=== PATIENT | male | born 1940 | race Caucasian/White ===

== ENCOUNTER 2018-02-27 11:07 | Inpatient (IN) ==
[2018-02-27] MEDS ORDERED: SODIUM CHLORIDE 0.9% 500 ML IV STA ×2 (11:29→12:43)
[2018-02-27] MEDS ORDERED: DILTIAZEM INJ 100 MG in SODIUM CHLORIDE 0.9% 100 ML IV SCH (11:30)
[2018-02-27] MEDS ORDERED: DILTIAZEM 50 MG/10 ML VIAL IV STA (11:30)
[2018-02-27 11:55] LABS: Basophils % 0.3 % (0.0-0.8); Eosinophils % 0.1 % (0.00-10.9); Hematocrit 40.7 VOL% (42.0-52.0); Hemoglobin 13.6 GM/DL (14.0-18.0); Immature Granulocytes % 0.4 %; Immature Granulocytes Absolute 0.05 #; Lymphocytes # 2.1 10*3/uL (1.4-4.0); Lymphocytes % 18.8 % (21.2-54.2); Mean Corpuscular HGB Conc 33.4 GM/DL (32-36); Mean Corpuscular Hemoglobin 29 PG (27-34); Mean Corpuscular Volume 85.3 FL (87-102); Mean Platelet Volume 11.4 FL (9.6-12.0); Monocytes # 1.3 10*3/uL (0.11-0.8); Monocytes % 11.6 % (1.7-12.7); Neutrophils # 7.7 10*3/uL (1.4-7.4); Neutrophils % 68.8 % (38.7-73.9); Platelet Count 191 T/CUMM (130-400); Red Blood Count 4.77 MC/CUMM (3.8-5.5); Red Cell Distribution Width 15.9 % (9.3-17.3); White Blood Count 11.3 T/CUMM (4-12)
[2018-02-27 12:12] LABS: Partial Thromboplastin Time 34.9 SECS (0-40)
[2018-02-27 12:17] LABS: INR 2.4
[2018-02-27 12:19] LABS: Albumin 3.4 G/DL (3.4-5.0); Bilirubin,Total 0.8 MG/DL (0.2-1.0); Calcium 9.2 MG/DL (8.5-10.1); Osmolality,Calculated 280.7 MOS/KG (273-304); Potassium 4.3 MMOL/L (3.5-5.1); Thyroid Stimulating Hormone 1.28 uIU/ml (0.358-3.74); Total Protein 7.8 G/DL (6.4-8.3)
[2018-02-27 12:34] LABS: PT Patient Result 24.8 SECS
[2018-02-27] MEDS ORDERED: ACETAMINOPHEN 325 MG TABLET PO PRN (14:31)
[2018-02-27] MEDS ORDERED: ONDANSETRON 4 MG/2 ML VIAL IV PRN (14:31)
[2018-02-27] MEDS: SODIUM CHLORIDE 0.9% 1,000 ML IV SCH ×2 (15:18→18:48)
[2018-02-27] MEDS ORDERED: GLUCAGON 1 MG VIAL IM PRN (15:20)
[2018-02-27] MEDS ORDERED: DEXTROSE 50% 25 GM/50 ML VIAL IV PRN (15:20)
[2018-02-27 15:40] LABS: Apearance,Urine CLEAR (Clear); Bilirubin,Urine Negative (Negative); Blood, Urine Small mg/dL (Negative); Glucose,Urine (UA) >=500 mg/dL (Negative); Ketones,Urine Negative (Negative); Nitrite,Urine Negative (Negative); Protein,Urine Negative; RBC,Urine 1 /HPF (0-4); Squamous Epithelial Cell,Urine Occasional /HPF (0-10); Urine Color Yellow (Yellow); Urine Urobilinogen < 2.0 EU/DL (0.2-1.0); WBC,Urine 2 /HPF (0-6)
[2018-02-27] MEDS: INSULIN LISPRO 100 UNIT/ML SUBCUT SCH ×2 (16:27→20:50)
[2018-02-27] MEDS: metFORMIN 500 MG TABLET PO SCH (16:54)
[2018-02-27] MEDS ORDERED: AMIODARONE INJ 150 MG in DEXTROSE 5% 100 ML IV ONE (17:33)
[2018-02-27] MEDS ORDERED: AMIODARONE INJ 450 MG in DEXTROSE 5% 241 ML IV SCH (18:00)
[2018-02-27] MEDS: WARFARIN 5 MG TABLET PO SCH (18:47)
[2018-02-27] MEDS: levETIRAcetam 500 MG TABLET PO SCH (20:51)
[2018-02-27] MEDS: MAGNESIUM CHLORIDE 64 MG TABLET PO SCH (20:51)
[2018-02-27] MEDS: DOCUSATE SODIUM 100 MG CAPSULE PO SCH (20:52)
[2018-02-27] MEDS: ROSUVASTATIN 20 MG TABLET PO SCH (20:52)
[2018-02-27] MEDS: METOPROLOL TARTRATE 50 MG TABLET PO SCH (20:52)
[2018-02-27] MEDS ORDERED: AMITRIPTYLINE 25 MG TABLET PO SCH (21:00)
[2018-02-28] MEDS: AMIODARONE INJ 450 MG in DEXTROSE 5% 241 ML IV SCH ×2 (01:02→17:28)
[2018-02-28] MEDS: SODIUM CHLORIDE 0.9% 1,000 ML IV SCH ×3 (04:31→12:55)
[2018-02-28 06:01] LABS: Basophils % 0.2 % (0.0-0.8); Eosinophils % 0.1 % (0.00-10.9); Hematocrit 39.3 VOL% (42.0-52.0); Immature Granulocytes % 0.3 %; Immature Granulocytes Absolute 0.03 #; Lymphocytes # 2.2 10*3/uL (1.4-4.0); Lymphocytes % 20.8 % (21.2-54.2); Mean Corpuscular HGB Conc 33.1 GM/DL (32-36); Mean Corpuscular Hemoglobin 28 PG (27-34); Mean Corpuscular Volume 85.4 FL (87-102); Mean Platelet Volume 11.3 FL (9.6-12.0); Monocytes # 0.9 10*3/uL (0.11-0.8); Monocytes % 8.6 % (1.7-12.7); Neutrophils # 7.5 10*3/uL (1.4-7.4); Platelet Count 186 T/CUMM (130-400); Red Cell Distribution Width 15.9 % (9.3-17.3); White Blood Count 10.6 T/CUMM (4-12)
[2018-02-28] MEDS: LEVOTHYROXINE 50 MCG TABLET PO SCH (06:18)
[2018-02-28 06:44] LABS: Osmolality,Calculated 282.4 MOS/KG (273-304); Potassium 4.4 MMOL/L (3.5-5.1)
[2018-02-28] MEDS: levETIRAcetam 500 MG TABLET PO SCH (08:55)
[2018-02-28] MEDS: PANTOPRAZOLE 40 MG TABLET PO SCH (08:56)
[2018-02-28] MEDS: metFORMIN 500 MG TABLET PO SCH ×2 (08:56→17:28)
[2018-02-28] MEDS: TAMSULOSIN 0.4 MG CAPSULE PO SCH (08:56)
[2018-02-28] MEDS: DOCUSATE SODIUM 100 MG CAPSULE PO SCH ×2 (08:56→22:09)
[2018-02-28] MEDS: METOPROLOL TARTRATE 50 MG TABLET PO SCH ×2 (08:56→22:09)
[2018-02-28] MEDS: LORATADINE 10 MG TABLET PO SCH (08:56)
[2018-02-28] MEDS: MAGNESIUM CHLORIDE 64 MG TABLET PO SCH ×2 (08:56→22:09)
[2018-02-28] MEDS: INSULIN LISPRO 100 UNIT/ML SUBCUT SCH ×4 (08:57→22:10)
[2018-02-28] MEDS ORDERED: Dapagliflozin Propanediol [Farxiga] PO SCH (09:00)
[2018-02-28] MEDS ORDERED: Insulin Degludec [Tresiba Flextouch U-100] SUBCUT SCH (09:00)
[2018-02-28] MEDS ORDERED: DIGOXIN 0.5 MG/2 ML AMP IV ONE ×2 (12:00→18:00)
[2018-02-28] MEDS ORDERED: AMITRIPTYLINE 25 MG TABLET PO SCH (15:29)
[2018-02-28] MEDS: WARFARIN 5 MG TABLET PO SCH (17:28)
[2018-02-28] MEDS: LISINOPRIL 2.5 MG TABLET PO SCH (22:09)
[2018-02-28] MEDS: ROSUVASTATIN 20 MG TABLET PO SCH (22:09)
[2018-02-28] MEDS: levETIRAcetam 250 MG TABLET PO SCH (22:09)
[2018-02-28] MEDS: guaiFENesin 200 MG/10 ML UDCUP PO PRN (22:10)
[2018-03-01 05:47] LABS: Basophils % 0.2 % (0.0-0.8); Eosinophils # 0.1 10*3/uL (0.0-0.87); Eosinophils % 0.7 % (0.00-10.9); Hematocrit 36.6 VOL% (42.0-52.0); Hemoglobin 12.1 GM/DL (14.0-18.0); Immature Granulocytes % 0.2 %; Immature Granulocytes Absolute 0.02 #; Lymphocytes # 1.6 10*3/uL (1.4-4.0); Lymphocytes % 19.6 % (21.2-54.2); Mean Corpuscular HGB Conc 33.1 GM/DL (32-36); Mean Corpuscular Hemoglobin 29 PG (27-34); Mean Corpuscular Volume 86.1 FL (87-102); Mean Platelet Volume 12.7 FL (9.6-12.0); Monocytes # 0.7 10*3/uL (0.11-0.8); Monocytes % 8.8 % (1.7-12.7); NRBC # 0.02 10*3/uL; Neutrophils # 5.8 10*3/uL (1.4-7.4); Neutrophils % 70.5 % (38.7-73.9); Platelet Count 102 T/CUMM (130-400); Red Blood Count 4.25 MC/CUMM (3.8-5.5); Red Cell Distribution Width 16.2 % (9.3-17.3); White Blood Count 8.2 T/CUMM (4-12)
[2018-03-01 06:07] LABS: PT Patient Result 30.8 SECS
[2018-03-01] MEDS: LEVOTHYROXINE 50 MCG TABLET PO SCH (06:18)
[2018-03-01 06:24] LABS: Calcium 8.4 MG/DL (8.5-10.1); Osmolality,Calculated 282.3 MOS/KG (273-304)
[2018-03-01 06:25] LABS: Osmolality,Calculated 283.3 MOS/KG (273-304)
[2018-03-01] MEDS ORDERED: COLCHICINE 0.6 MG TABLET PO ONE ×2 (08:31→14:00)
[2018-03-01] MEDS: INSULIN LISPRO 100 UNIT/ML SUBCUT SCH ×4 (08:45→21:20)
[2018-03-01] MEDS: LISINOPRIL 2.5 MG TABLET PO SCH ×2 (08:52→21:19)
[2018-03-01] MEDS: AMOXICILLIN/CLAV 875 MG TABLET PO SCH ×2 (08:53→21:19)
[2018-03-01] MEDS: MAGNESIUM CHLORIDE 64 MG TABLET PO SCH ×2 (08:53→21:19)
[2018-03-01] MEDS: PANTOPRAZOLE 40 MG TABLET PO SCH (08:53)
[2018-03-01] MEDS: TAMSULOSIN 0.4 MG CAPSULE PO SCH (08:53)
[2018-03-01] MEDS: levETIRAcetam 250 MG TABLET PO SCH ×2 (08:53→21:20)
[2018-03-01] MEDS: DOCUSATE SODIUM 100 MG CAPSULE PO SCH ×2 (08:53→21:20)
[2018-03-01] MEDS: METOPROLOL TARTRATE 50 MG TABLET PO SCH ×2 (08:53→21:20)
[2018-03-01] MEDS: AMIODARONE 200 MG TABLET PO SCH ×2 (08:54→21:19)
[2018-03-01] MEDS: metFORMIN 500 MG TABLET PO SCH ×2 (08:54→17:32)
[2018-03-01] MEDS: LORATADINE 10 MG TABLET PO SCH (08:54)
[2018-03-01] MEDS: AMIODARONE INJ 450 MG in DEXTROSE 5% 241 ML IV SCH (10:54)
[2018-03-01] MEDS ORDERED: WARFARIN 5 MG TABLET PO SCH (18:00)
[2018-03-01] MEDS: ROSUVASTATIN 20 MG TABLET PO SCH (21:19)
[2018-03-02 03:31] LABS: Basophils # 0.1 10*3/uL (0.0-0.2); Basophils % 0.7 % (0.0-0.8); Eosinophils # 0.2 10*3/uL (0.0-0.87); Eosinophils % 2.6 % (0.00-10.9); Hemoglobin 12.6 GM/DL (14.0-18.0); Immature Granulocytes % 0.3 %; Immature Granulocytes Absolute 0.02 #; Lymphocytes # 1.6 10*3/uL (1.4-4.0); Lymphocytes % 20.6 % (21.2-54.2); Mean Corpuscular HGB Conc 32.3 GM/DL (32-36); Mean Corpuscular Hemoglobin 28 PG (27-34); Mean Corpuscular Volume 86.5 FL (87-102); Monocytes # 0.8 10*3/uL (0.11-0.8); Neutrophils # 5.1 10*3/uL (1.4-7.4); Neutrophils % 65.8 % (38.7-73.9); Platelet Count 199 T/CUMM (130-400); Red Blood Count 4.51 MC/CUMM (3.8-5.5); Red Cell Distribution Width 15.9 % (9.3-17.3); White Blood Count 7.7 T/CUMM (4-12)
[2018-03-02 03:44] LABS: INR 3.3
[2018-03-02 03:47] LABS: PT Patient Result 33.7 SECS
[2018-03-02 03:58] LABS: Calcium 8.4 MG/DL (8.5-10.1); Osmolality,Calculated 280.5 MOS/KG (273-304); Potassium 3.9 MMOL/L (3.5-5.1)
[2018-03-02] MEDS: LEVOTHYROXINE 50 MCG TABLET PO SCH (06:18)
[2018-03-02] MEDS: INSULIN LISPRO 100 UNIT/ML SUBCUT SCH ×4 (08:39→20:47)
[2018-03-02] MEDS: LISINOPRIL 2.5 MG TABLET PO SCH ×2 (08:41→20:47)
[2018-03-02] MEDS: AMOXICILLIN/CLAV 875 MG TABLET PO SCH ×2 (08:41→20:47)
[2018-03-02] MEDS: MAGNESIUM CHLORIDE 64 MG TABLET PO SCH ×2 (08:42→20:47)
[2018-03-02] MEDS: metFORMIN 500 MG TABLET PO SCH ×2 (08:42→17:24)
[2018-03-02] MEDS: DOCUSATE SODIUM 100 MG CAPSULE PO SCH ×2 (08:42→20:47)
[2018-03-02] MEDS: levETIRAcetam 250 MG TABLET PO SCH ×2 (08:42→20:47)
[2018-03-02] MEDS: LORATADINE 10 MG TABLET PO SCH (08:43)
[2018-03-02] MEDS: METOPROLOL TARTRATE 50 MG TABLET PO SCH ×2 (08:43→20:47)
[2018-03-02] MEDS: PANTOPRAZOLE 40 MG TABLET PO SCH (08:43)
[2018-03-02] MEDS: AMIODARONE 200 MG TABLET PO SCH ×2 (08:44→20:47)
[2018-03-02] MEDS: TAMSULOSIN 0.4 MG CAPSULE PO SCH (08:44)
[2018-03-02] MEDS: ROSUVASTATIN 20 MG TABLET PO SCH (20:47)
[2018-03-03 05:04] LABS: Basophils % 0.6 % (0.0-0.8); Eosinophils # 0.3 10*3/uL (0.0-0.87); Eosinophils % 4.6 % (0.00-10.9); Hematocrit 39.6 VOL% (42.0-52.0); Hemoglobin 12.8 GM/DL (14.0-18.0); Immature Granulocytes % 0.4 %; Immature Granulocytes Absolute 0.03 #; Lymphocytes # 1.7 10*3/uL (1.4-4.0); Lymphocytes % 23.9 % (21.2-54.2); Mean Corpuscular HGB Conc 32.3 GM/DL (32-36); Mean Corpuscular Hemoglobin 28 PG (27-34); Mean Platelet Volume 11.3 FL (9.6-12.0); Monocytes # 0.6 10*3/uL (0.11-0.8); Monocytes % 8.6 % (1.7-12.7); Neutrophils # 4.3 10*3/uL (1.4-7.4); Neutrophils % 61.9 % (38.7-73.9); Platelet Count 213 T/CUMM (130-400); Red Blood Count 4.55 MC/CUMM (3.8-5.5); Red Cell Distribution Width 15.8 % (9.3-17.3)
[2018-03-03 05:35] LABS: Calcium 8.3 MG/DL (8.5-10.1); Osmolality,Calculated 283.3 MOS/KG (273-304)
[2018-03-03 06:02] LABS: INR 3.6
[2018-03-03 06:03] LABS: PT Patient Result 36.1 SECS
[2018-03-03] MEDS: LEVOTHYROXINE 50 MCG TABLET PO SCH (06:21)
[2018-03-03] MEDS: MAGNESIUM CHLORIDE 64 MG TABLET PO SCH ×2 (09:01→21:25)
[2018-03-03] MEDS: AMIODARONE 200 MG TABLET PO SCH ×2 (09:01→21:25)
[2018-03-03] MEDS: PANTOPRAZOLE 40 MG TABLET PO SCH (09:01)
[2018-03-03] MEDS: LISINOPRIL 2.5 MG TABLET PO SCH ×2 (09:02→21:25)
[2018-03-03] MEDS: DOCUSATE SODIUM 100 MG CAPSULE PO SCH ×2 (09:02→21:25)
[2018-03-03] MEDS: AMOXICILLIN/CLAV 875 MG TABLET PO SCH ×2 (09:02→21:25)
[2018-03-03] MEDS: TAMSULOSIN 0.4 MG CAPSULE PO SCH (09:02)
[2018-03-03] MEDS: levETIRAcetam 500 MG TABLET PO SCH (09:03)
[2018-03-03] MEDS: metFORMIN 500 MG TABLET PO SCH ×2 (09:03→17:25)
[2018-03-03] MEDS: METOPROLOL TARTRATE 50 MG TABLET PO SCH ×2 (09:03→21:25)
[2018-03-03] MEDS: LORATADINE 10 MG TABLET PO SCH (09:03)
[2018-03-03] MEDS: INSULIN LISPRO 100 UNIT/ML SUBCUT SCH ×4 (14:59→21:26)
[2018-03-03] MEDS: levETIRAcetam 250 MG TABLET PO SCH (21:25)
[2018-03-03] MEDS: ROSUVASTATIN 20 MG TABLET PO SCH (21:25)
[2018-03-04 04:29] LABS: INR 3.2; PT Patient Result 32.2 SECS
[2018-03-04] MEDS: LEVOTHYROXINE 50 MCG TABLET PO SCH ×2 (06:43)
[2018-03-04] MEDS: INSULIN LISPRO 100 UNIT/ML SUBCUT SCH ×4 (08:39→20:50)
[2018-03-04] MEDS: AMOXICILLIN/CLAV 875 MG TABLET PO SCH ×2 (08:53→20:49)
[2018-03-04] MEDS: LISINOPRIL 2.5 MG TABLET PO SCH ×2 (08:53→20:49)
[2018-03-04] MEDS: PANTOPRAZOLE 40 MG TABLET PO SCH (08:53)
[2018-03-04] MEDS: levETIRAcetam 500 MG TABLET PO SCH (08:53)
[2018-03-04] MEDS: TAMSULOSIN 0.4 MG CAPSULE PO SCH (08:53)
[2018-03-04] MEDS: MAGNESIUM CHLORIDE 64 MG TABLET PO SCH ×2 (08:53→20:49)
[2018-03-04] MEDS: METOPROLOL TARTRATE 50 MG TABLET PO SCH ×2 (08:54→20:49)
[2018-03-04] MEDS: DOCUSATE SODIUM 100 MG CAPSULE PO SCH ×2 (08:54→20:49)
[2018-03-04] MEDS: AMIODARONE 200 MG TABLET PO SCH (08:54)
[2018-03-04] MEDS: metFORMIN 500 MG TABLET PO SCH ×2 (08:54→16:51)
[2018-03-04] MEDS: LORATADINE 10 MG TABLET PO SCH (08:54)
[2018-03-04] MEDS: guaiFENesin 200 MG/10 ML UDCUP PO PRN (13:53)
[2018-03-04] MEDS: levETIRAcetam 250 MG TABLET PO SCH (20:49)
[2018-03-04] MEDS: ROSUVASTATIN 20 MG TABLET PO SCH (20:49)
[2018-03-05 05:48] LABS: INR 2.3
[2018-03-05] MEDS: LEVOTHYROXINE 50 MCG TABLET PO SCH (06:24)
[2018-03-05] MEDS: metFORMIN 500 MG TABLET PO SCH (08:57)
[2018-03-05] MEDS: LORATADINE 10 MG TABLET PO SCH (08:57)
[2018-03-05] MEDS: MAGNESIUM CHLORIDE 64 MG TABLET PO SCH (08:57)
[2018-03-05] MEDS: TAMSULOSIN 0.4 MG CAPSULE PO SCH (08:57)
[2018-03-05] MEDS: AMOXICILLIN/CLAV 875 MG TABLET PO SCH (08:57)
[2018-03-05] MEDS: LISINOPRIL 2.5 MG TABLET PO SCH (08:57)
[2018-03-05] MEDS: levETIRAcetam 500 MG TABLET PO SCH (08:57)
[2018-03-05] MEDS: METOPROLOL TARTRATE 50 MG TABLET PO SCH (08:57)
[2018-03-05] MEDS: INSULIN LISPRO 100 UNIT/ML SUBCUT SCH ×2 (08:58→12:18)
[2018-03-05] MEDS: PANTOPRAZOLE 40 MG TABLET PO SCH (08:58)
[2018-03-05] MEDS: DOCUSATE SODIUM 100 MG CAPSULE PO SCH (08:58)
[2018-03-05] MEDS ORDERED: AMIODARONE 200 MG TABLET PO SCH (09:00)
[2018-03-05 12:05] VITALS: BP 106/55
== END 2018-03-05 13:05 | disposition swing bed (61) | DRG 884 ==
LOC: N.ED 11:07 → N.EDINP 12:51 → N.TELEN 17:29
PROVIDERS: ADMIT Internal Medicine; ATTEND Internal Medicine

== ENCOUNTER 2019-11-15 12:00 | Inpatient (IN) ==
[2019-11-15 12:39] LABS: Basophils # 0.1 10*3/uL (0.0-0.2); Basophils % 0.6 % (0.0-0.8); Eosinophils # 0.1 10*3/uL (0.0-0.87); Eosinophils % 0.5 % (0.00-10.9); Hematocrit 40.1 VOL% (42.0-52.0); Hemoglobin 12.8 GM/DL (14.0-18.0); Immature Granulocytes % 0.5 %; Immature Granulocytes Absolute 0.05 #; Lymphocytes # 1.4 10*3/uL (1.4-4.0); Lymphocytes % 14.6 % (21.2-54.2); Mean Corpuscular HGB Conc 31.9 GM/DL (32-36); Mean Corpuscular Volume 92.2 FL (87-102); Mean Platelet Volume 11.1 FL (9.6-12.0); Monocytes % 9.2 % (1.7-12.7); Neutrophils % 74.6 % (38.7-73.9); Platelet Count 226 T/CUMM (130-400); Red Blood Count 4.35 MC/CUMM (3.8-5.5); Red Cell Distribution Width 14.4 % (9.3-17.3); White Blood Count 9.3 T/CUMM (4-12)
[2019-11-15 12:54] LABS: INR 1.7; PT Patient Result 18.3 SECS (9.6-12.2); Partial Thromboplastin Time 32.2 SECS (20.8-36.0)
[2019-11-15 12:58] LABS: Albumin 3.2 G/DL (3.4-5.0); Bilirubin,Total 0.4 MG/DL (0.2-1.0); Calcium 8.6 MG/DL (8.5-10.1); Osmolality,Calculated 281.1 MOS/KG (273-304); Total Protein 6.8 G/DL (6.4-8.3)
[2019-11-15 14:33] LABS: Apearance,Urine CLEAR (Clear); Bilirubin,Urine Negative (Negative); Blood, Urine Moderate mg/dL (Negative); Glucose,Urine (UA) >=500 mg/dL (Negative); Ketones,Urine Negative (Negative); Mucus,Urine Occasional /LPF (Occasional); Nitrite,Urine Negative (Negative); Protein,Urine Negative; RBC,Urine 1 /HPF (0-4); Squamous Epithelial Cell,Urine Occasional /HPF (0-10); Urine Color Yellow (Yellow); Urine Urobilinogen < 2.0 EU/DL (0.2-1.0); WBC,Urine 3 /HPF (0-6)
[2019-11-15] MEDS ORDERED: ONDANSETRON 4 MG/2 ML VIAL IV PRN (15:12)
[2019-11-15] MEDS ORDERED: GLUCAGON 1 MG VIAL IM PRN (15:12)
[2019-11-15] MEDS ORDERED: DEXTROSE 50% 25 GM/50 ML VIAL IV PRN (15:12)
[2019-11-15] MEDS ORDERED: ACETAMINOPHEN 325 MG TABLET PO PRN (15:12)
[2019-11-15] MEDS: metFORMIN 500 MG TABLET PO SCH (17:15)
[2019-11-15] MEDS: methylPREDNISolone SOD SUC 40 MG/1 ML VIAL IV SCH (17:15)
[2019-11-15] MEDS: WARFARIN 5 MG TABLET PO SCH (17:15)
[2019-11-15] MEDS: SODIUM CHLORIDE 0.45% 1,000 ML IV SCH (17:29)
[2019-11-15] MEDS: INSULIN LISPRO 100 UNIT/ML SUBCUT SCH ×2 (17:29→20:52)
[2019-11-15] MEDS: levETIRAcetam 250 MG TABLET PO SCH (20:30)
[2019-11-15] MEDS: AMIODARONE 200 MG TABLET PO SCH (20:30)
[2019-11-15] MEDS: MAGNESIUM CHLORIDE 64 MG TABLET PO SCH (20:31)
[2019-11-15] MEDS: METOPROLOL TARTRATE 50 MG TABLET PO SCH (20:31)
[2019-11-15] MEDS: TAMSULOSIN 0.4 MG CAPSULE PO SCH (20:31)
[2019-11-15] MEDS: ROSUVASTATIN 20 MG TABLET PO SCH (20:31)
[2019-11-15] MEDS ORDERED: MAGNESIUM SULF RIDER 2 GM in PREMIX 1 EACH IV PRN (23:03)
[2019-11-15] MEDS ORDERED: MAGNESIUM SULF RIDER 4 GM in PREMIX 1 EACH IV PRN (23:03)
[2019-11-16] MEDS: methylPREDNISolone SOD SUC 40 MG/1 ML VIAL IV SCH ×3 (01:19→17:14)
[2019-11-16 04:32] LABS: Basophils % 0.2 % (0.0-0.8); Hematocrit 34.8 VOL% (42.0-52.0); Hemoglobin 11.2 GM/DL (14.0-18.0); Immature Granulocytes % 0.6 %; Immature Granulocytes Absolute 0.06 #; Lymphocytes # 1.2 10*3/uL (1.4-4.0); Lymphocytes % 11.6 % (21.2-54.2); Mean Corpuscular HGB Conc 32.2 GM/DL (32-36); Mean Corpuscular Volume 91.8 FL (87-102); Monocytes % 1.1 % (1.7-12.7); Neutrophils % 86.5 % (38.7-73.9); Platelet Count 225 T/CUMM (130-400); Red Blood Count 3.79 MC/CUMM (3.8-5.5); Red Cell Distribution Width 14.3 % (9.3-17.3); White Blood Count 10.1 T/CUMM (4-12)
[2019-11-16 04:46] LABS: PT Patient Result 21.8 SECS (9.6-12.2)
[2019-11-16 04:48] LABS: Calcium 8.6 MG/DL (8.5-10.1); Osmolality,Calculated 282.8 MOS/KG (273-304)
[2019-11-16] MEDS: LEVOTHYROXINE 125 MCG TABLET PO SCH (06:05)
[2019-11-16] MEDS: metFORMIN 500 MG TABLET PO SCH ×2 (09:07→17:15)
[2019-11-16] MEDS: MAGNESIUM CHLORIDE 64 MG TABLET PO SCH ×2 (09:07→21:16)
[2019-11-16] MEDS: METOPROLOL TARTRATE 50 MG TABLET PO SCH ×2 (09:08→21:16)
[2019-11-16] MEDS: LORATADINE 10 MG TABLET PO SCH (09:08)
[2019-11-16] MEDS: INSULIN GLARGINE 100 UNIT/ML SUBCUT SCH (09:08)
[2019-11-16] MEDS: PANTOPRAZOLE 40 MG TABLET PO SCH (09:08)
[2019-11-16] MEDS: AMITRIPTYLINE 25 MG TABLET PO SCH (09:08)
[2019-11-16] MEDS: INSULIN LISPRO 100 UNIT/ML SUBCUT SCH ×4 (09:09→21:15)
[2019-11-16] MEDS: levETIRAcetam 500 MG TABLET PO SCH (09:13)
[2019-11-16] MEDS: SODIUM CHLORIDE 0.45% 1,000 ML IV SCH ×2 (12:51→21:26)
[2019-11-16] MEDS: WARFARIN 5 MG TABLET PO SCH (17:15)
[2019-11-16] MEDS: AMIODARONE 200 MG TABLET PO SCH (21:16)
[2019-11-16] MEDS: ROSUVASTATIN 20 MG TABLET PO SCH (21:16)
[2019-11-16] MEDS: TAMSULOSIN 0.4 MG CAPSULE PO SCH (21:16)
[2019-11-16] MEDS: levETIRAcetam 250 MG TABLET PO SCH (21:16)
[2019-11-17] MEDS: methylPREDNISolone SOD SUC 40 MG/1 ML VIAL IV SCH ×3 (02:00→17:25)
[2019-11-17] MEDS: LEVOTHYROXINE 125 MCG TABLET PO SCH (06:16)
[2019-11-17] MEDS: INSULIN LISPRO 100 UNIT/ML SUBCUT SCH ×4 (09:08→20:29)
[2019-11-17] MEDS: SODIUM CHLORIDE 0.45% 1,000 ML IV SCH ×2 (09:08→17:36)
[2019-11-17] MEDS: levETIRAcetam 500 MG TABLET PO SCH (09:09)
[2019-11-17] MEDS: metFORMIN 500 MG TABLET PO SCH ×2 (09:09→17:26)
[2019-11-17] MEDS: METOPROLOL TARTRATE 50 MG TABLET PO SCH ×2 (09:09→20:28)
[2019-11-17] MEDS: MAGNESIUM CHLORIDE 64 MG TABLET PO SCH ×2 (09:09→20:28)
[2019-11-17] MEDS: AMITRIPTYLINE 25 MG TABLET PO SCH (09:09)
[2019-11-17] MEDS: PANTOPRAZOLE 40 MG TABLET PO SCH (09:10)
[2019-11-17] MEDS: INSULIN GLARGINE 100 UNIT/ML SUBCUT SCH (09:10)
[2019-11-17] MEDS: LORATADINE 10 MG TABLET PO SCH (09:10)
[2019-11-17 13:15] LABS: Folate 3.5 NG/ML (5.4-24.0); Vitamin B12 278 PG/ML (211-911)
[2019-11-17] MEDS: WARFARIN 5 MG TABLET PO SCH (17:26)
[2019-11-17] MEDS: TAMSULOSIN 0.4 MG CAPSULE PO SCH (20:28)
[2019-11-17] MEDS: levETIRAcetam 250 MG TABLET PO SCH (20:28)
[2019-11-17] MEDS: ROSUVASTATIN 20 MG TABLET PO SCH (20:28)
[2019-11-17] MEDS: AMIODARONE 200 MG TABLET PO SCH (20:28)
[2019-11-18] MEDS: methylPREDNISolone SOD SUC 40 MG/1 ML VIAL IV SCH ×3 (01:50→17:01)
[2019-11-18] MEDS: SODIUM CHLORIDE 0.45% 1,000 ML IV SCH ×2 (06:20→20:34)
[2019-11-18] MEDS: LEVOTHYROXINE 125 MCG TABLET PO SCH (06:20)
[2019-11-18] MEDS: LORATADINE 10 MG TABLET PO SCH (09:13)
[2019-11-18] MEDS: PANTOPRAZOLE 40 MG TABLET PO SCH (09:14)
[2019-11-18] MEDS: metFORMIN 500 MG TABLET PO SCH ×2 (09:14→16:49)
[2019-11-18] MEDS: MAGNESIUM CHLORIDE 64 MG TABLET PO SCH ×2 (09:14→20:36)
[2019-11-18] MEDS: AMITRIPTYLINE 25 MG TABLET PO SCH (09:14)
[2019-11-18] MEDS: METOPROLOL TARTRATE 50 MG TABLET PO SCH ×2 (09:14→20:37)
[2019-11-18] MEDS: INSULIN GLARGINE 100 UNIT/ML SUBCUT SCH (09:14)
[2019-11-18] MEDS: levETIRAcetam 500 MG TABLET PO SCH (09:14)
[2019-11-18] MEDS: INSULIN LISPRO 100 UNIT/ML SUBCUT SCH ×4 (09:15→20:43)
[2019-11-18] MEDS: WARFARIN 5 MG TABLET PO SCH (16:59)
[2019-11-18] MEDS: ROSUVASTATIN 20 MG TABLET PO SCH (20:36)
[2019-11-18] MEDS: levETIRAcetam 250 MG TABLET PO SCH (20:36)
[2019-11-18] MEDS: AMIODARONE 200 MG TABLET PO SCH (20:36)
[2019-11-18] MEDS: TAMSULOSIN 0.4 MG CAPSULE PO SCH (20:37)
[2019-11-19] MEDS: methylPREDNISolone SOD SUC 40 MG/1 ML VIAL IV SCH ×3 (02:30→17:11)
[2019-11-19 05:36] LABS: Basophils % 0.1 % (0.0-0.8); Hematocrit 34.7 VOL% (42.0-52.0); Hemoglobin 11.3 GM/DL (14.0-18.0); Immature Granulocytes % 1.7 %; Lymphocytes # 1.2 10*3/uL (1.4-4.0); Lymphocytes % 10.1 % (21.2-54.2); Mean Corpuscular HGB Conc 32.6 GM/DL (32-36); Mean Corpuscular Volume 91.3 FL (87-102); Mean Platelet Volume 10.6 FL (9.6-12.0); Monocytes % 2.7 % (1.7-12.7); Neutrophils % 85.4 % (38.7-73.9); Platelet Count 241 T/CUMM (130-400); Red Cell Distribution Width 14.5 % (9.3-17.3); White Blood Count 12.1 T/CUMM (4-12)
[2019-11-19 05:58] LABS: PT Patient Result 42.7 SECS (9.6-12.2)
[2019-11-19 06:02] LABS: Calcium 8.4 MG/DL (8.5-10.1); Osmolality,Calculated 282.7 MOS/KG (273-304)
[2019-11-19] MEDS: INSULIN GLARGINE 100 UNIT/ML SUBCUT SCH (08:52)
[2019-11-19] MEDS: METOPROLOL TARTRATE 50 MG TABLET PO SCH ×2 (08:53→21:45)
[2019-11-19] MEDS: PANTOPRAZOLE 40 MG TABLET PO SCH (08:53)
[2019-11-19] MEDS: MAGNESIUM CHLORIDE 64 MG TABLET PO SCH ×2 (08:53→21:45)
[2019-11-19] MEDS: levETIRAcetam 500 MG TABLET PO SCH (08:53)
[2019-11-19] MEDS: metFORMIN 500 MG TABLET PO SCH ×2 (08:53→17:11)
[2019-11-19] MEDS: LEVOTHYROXINE 125 MCG TABLET PO SCH (08:53)
[2019-11-19] MEDS: INSULIN LISPRO 100 UNIT/ML SUBCUT SCH ×4 (08:54→21:43)
[2019-11-19] MEDS: LORATADINE 10 MG TABLET PO SCH (08:54)
[2019-11-19] MEDS: SODIUM CHLORIDE 0.45% 1,000 ML IV SCH (08:54)
[2019-11-19] MEDS: AMITRIPTYLINE 25 MG TABLET PO SCH (08:54)
[2019-11-19] MEDS: levETIRAcetam 250 MG TABLET PO SCH (21:44)
[2019-11-19] MEDS: ROSUVASTATIN 20 MG TABLET PO SCH (21:45)
[2019-11-19] MEDS: TAMSULOSIN 0.4 MG CAPSULE PO SCH (21:45)
[2019-11-19] MEDS: AMIODARONE 200 MG TABLET PO SCH (21:45)
[2019-11-20] MEDS: methylPREDNISolone SOD SUC 40 MG/1 ML VIAL IV SCH (03:39)
[2019-11-20 05:05] LABS: INR 3.9
[2019-11-20 05:07] LABS: PT Patient Result 41.6 SECS (9.6-12.2)
[2019-11-20] MEDS: LEVOTHYROXINE 125 MCG TABLET PO SCH (06:27)
[2019-11-20] MEDS: INSULIN GLARGINE 100 UNIT/ML SUBCUT SCH (08:52)
[2019-11-20] MEDS: PANTOPRAZOLE 40 MG TABLET PO SCH (08:53)
[2019-11-20] MEDS: LORATADINE 10 MG TABLET PO SCH (08:53)
[2019-11-20] MEDS: AMITRIPTYLINE 25 MG TABLET PO SCH (08:53)
[2019-11-20] MEDS: metFORMIN 500 MG TABLET PO SCH (08:53)
[2019-11-20] MEDS: MAGNESIUM CHLORIDE 64 MG TABLET PO SCH (08:53)
[2019-11-20] MEDS: METOPROLOL TARTRATE 50 MG TABLET PO SCH (08:53)
[2019-11-20] MEDS: levETIRAcetam 500 MG TABLET PO SCH (08:53)
[2019-11-20] MEDS: INSULIN LISPRO 100 UNIT/ML SUBCUT SCH (08:54)
[2019-11-20 09:10] VITALS: BP 121/78
== END 2019-11-20 11:00 | DRG 57 ==
LOC: N.ED 12:00 → N.EDINP 15:12 → N.4E 16:38
PROVIDERS: ADMIT Internal Medicine; ATTEND Internal Medicine

== ENCOUNTER 2022-06-11 17:30 | Inpatient (IN) ==
[2022-06-11] MEDS ORDERED: DEXTROSE 10% 250 ML BAG IV PRN (20:14)
[2022-06-11] MEDS ORDERED: POTASSIUM CHLORIDE RIDER 10 MEQ/100 ML PREMIX IV PRN (20:14)
[2022-06-11] MEDS ORDERED: MAGNESIUM SULF RIDER 2 GM/50 ML PREMIX IV PRN (20:14)
[2022-06-11] MEDS ORDERED: ONDANSETRON 4 MG/2 ML VIAL IV PRN (20:14)
[2022-06-11] MEDS ORDERED: GLUCAGON 1 MG VIAL IM PRN (20:14)
[2022-06-11] MEDS ORDERED: MAGNESIUM SULF RIDER 4 GM/100 ML PREMIX IV PRN (20:14)
[2022-06-11] MEDS ORDERED: ACETAMINOPHEN 325 MG TABLET PO PRN (20:14)
[2022-06-11] MEDS ORDERED: FUROSEMIDE 20 MG/2 ML VIAL IV ONE (20:51)
[2022-06-11 20:53] LABS: Basophils % 0.1 % (0.0-0.8); Hematocrit 34.1 VOL% (42.0-52.0); Hemoglobin 10.8 GM/DL (14.0-18.0); Immature Granulocytes % 0.4 %; Immature Granulocytes Absolute 0.04 #; Lymphocytes # 0.6 10*3/uL (1.4-4.0); Lymphocytes % 6.5 % (21.2-54.2); Mean Corpuscular HGB Conc 31.7 GM/DL (32-36); Mean Corpuscular Volume 84.4 FL (87-102); Monocytes # 0.7 10*3/uL (0.11-0.8); Monocytes % 7.9 % (1.7-12.7); Neutrophils % 85.1 % (38.7-73.9); Platelet Count 207 T/CUMM (130-400); Red Blood Count 4.04 MC/CUMM (3.8-5.5); Red Cell Distribution Width 17.8 % (9.3-17.3)
[2022-06-11] MEDS ORDERED: levETIRAcetam 250 MG TABLET PO SCH (21:00)
[2022-06-11 21:39] LABS: Albumin 2.8 G/DL (3.4-5.0); Bilirubin,Total 0.8 MG/DL (0.20-1.00); Calcium 8.9 MG/DL (8.5-10.1); Osmolality,Calculated 291.5 MOS/KG (273-304); Potassium 4.6 MMOL/L (3.5-5.1); Total Protein 6.7 G/DL (6.4-8.2)
[2022-06-11 22:04] LABS: Free T4 (Free Thyroxine) 1.54 NG/DL (0.76-1.46); Thyroid Stimulating Hormone 9.08 uIU/ml (0.358-3.74)
[2022-06-11] MEDS: DOCUSATE SODIUM 100 MG CAPSULE PO SCH (22:44)
[2022-06-11] MEDS: INSULIN REGULAR 100 UNIT/ML SUBCUT SCH (22:45)
[2022-06-11] MEDS: ROSUVASTATIN 20 MG TABLET PO SCH (23:35)
[2022-06-11] MEDS: TAMSULOSIN 0.4 MG CAPSULE PO SCH (23:35)
[2022-06-11] MEDS: levETIRAcetam 500 MG TABLET PO SCH (23:35)
[2022-06-11] MEDS: METOPROLOL TARTRATE 25 MG TABLET PO SCH (23:35)
[2022-06-12 00:19] LABS: Glucose,Urine (UA) Negative (Negative); Ketones,Urine Negative (Negative); Nitrite,Urine Negative (Negative); Protein,Urine Negative (Negative); Urine Appearance Clear (Clear); Urine Color Yellow (Yellow)
[2022-06-12 00:20] LABS: Bilirubin,Urine Negative (Negative); Blood, Urine Moderate mg/dL (Negative); Urine Urobilinogen 0.2 eU/dL (<2.0)
[2022-06-12 00:52] LABS: Bacteria,Urine Occasional /HPF (Few); Hyaline Casts,Urine 3 /LPF (0-3); Mucus,Urine Occasional /LPF (Occasional); RBC,Urine 17 /HPF (0-4); Squamous Epithelial Cell,Urine Occasional /HPF (0-10)
[2022-06-12 05:58] LABS: Basophils % 0.2 % (0.0-0.8); Eosinophils % 0.2 % (0.00-10.9); Hematocrit 33.1 VOL% (42.0-52.0); Hemoglobin 10.5 GM/DL (14.0-18.0); Immature Granulocytes % 0.4 %; Immature Granulocytes Absolute 0.04 #; Lymphocytes # 0.9 10*3/uL (1.4-4.0); Lymphocytes % 9.2 % (21.2-54.2); Mean Corpuscular HGB Conc 31.7 GM/DL (32-36); Mean Corpuscular Volume 84.2 FL (87-102); Mean Platelet Volume 11.9 FL (9.6-12.0); Monocytes # 0.9 10*3/uL (0.11-0.8); Monocytes % 9.4 % (1.7-12.7); Neutrophils % 80.6 % (38.7-73.9); Platelet Count 186 T/CUMM (130-400); Red Blood Count 3.93 MC/CUMM (3.8-5.5); Red Cell Distribution Width 17.4 % (9.3-17.3); White Blood Count 9.4 T/CUMM (4-12)
[2022-06-12 06:15] LABS: Albumin 2.5 G/DL (3.4-5.0); Bilirubin,Total 0.8 MG/DL (0.20-1.00); Osmolality,Calculated 283.8 MOS/KG (273-304); Potassium 4.1 MMOL/L (3.5-5.1); Total Protein 6.4 G/DL (6.4-8.2)
[2022-06-12] MEDS ORDERED: INSULIN GLARGINE 100 UNIT/ML SUBCUT SCH (09:00)
[2022-06-12 09:30] LABS: INR 1.9; PT Patient Result 20.5 SECS (10.1-12.1)
[2022-06-12] MEDS: levETIRAcetam 500 MG TABLET PO SCH ×2 (10:11→21:57)
[2022-06-12] MEDS: DOCUSATE SODIUM 100 MG CAPSULE PO SCH ×2 (10:11→21:57)
[2022-06-12] MEDS: PANTOPRAZOLE 40 MG TABLET PO SCH (10:11)
[2022-06-12] MEDS: INSULIN REGULAR 100 UNIT/ML SUBCUT SCH ×4 (10:51→22:06)
[2022-06-12] MEDS ORDERED: TRESIBA SUBCUT SCH (12:00)
[2022-06-12] MEDS ORDERED: INSULIN GLARGINE 100 UNIT/ML SUBCUT ONE (14:00)
[2022-06-12] MEDS: LEVOTHYROXINE 125 MCG TABLET PO SCH (14:25)
[2022-06-12] MEDS: FUROSEMIDE 20 MG/2 ML VIAL IV SCH (14:26)
[2022-06-12] MEDS: WARFARIN 2.5 MG TABLET PO SCH (17:08)
[2022-06-12] MEDS: ROSUVASTATIN 20 MG TABLET PO SCH (21:57)
[2022-06-12] MEDS: TAMSULOSIN 0.4 MG CAPSULE PO SCH (21:57)
[2022-06-12] MEDS: METOPROLOL TARTRATE 25 MG TABLET PO SCH (21:58)
[2022-06-12] MEDS: QUEtiapine 25 MG TABLET PO SCH (21:58)
[2022-06-13 06:03] LABS: Basophils % 0.2 % (0.0-0.8); Eosinophils # 0.1 10*3/uL (0.0-0.87); Eosinophils % 1.3 % (0.00-10.9); Hemoglobin 10.1 GM/DL (14.0-18.0); Immature Granulocytes % 0.9 %; Immature Granulocytes Absolute 0.08 #; Lymphocytes # 0.9 10*3/uL (1.4-4.0); Lymphocytes % 9.6 % (21.2-54.2); Mean Corpuscular HGB Conc 32.6 GM/DL (32-36); Mean Corpuscular Volume 81.6 FL (87-102); Mean Platelet Volume 11.9 FL (9.6-12.0); Monocytes # 0.9 10*3/uL (0.11-0.8); Monocytes % 9.7 % (1.7-12.7); Neutrophils % 78.3 % (38.7-73.9); Platelet Count 206 T/CUMM (130-400); Red Cell Distribution Width 17.3 % (9.3-17.3); White Blood Count 9.2 T/CUMM (4-12)
[2022-06-13 06:10] LABS: INR 1.9; PT Patient Result 20.3 SECS (10.1-12.1)
[2022-06-13 06:21] LABS: Albumin 2.4 G/DL (3.4-5.0); Bilirubin,Total 0.7 MG/DL (0.20-1.00); Calcium 8.7 MG/DL (8.5-10.1); Osmolality,Calculated 285.5 MOS/KG (273-304); Potassium 3.2 MMOL/L (3.5-5.1)
[2022-06-13 07:21] LABS: Hepatitis B Core IgM Quant 0.15 Index; Hepatitis B Surface Ag Quant < 0.10 Index; Hepatitis B Surface Ag Result Non-Reactive (NonReactive); Hepatitis C Virus Ab Quant < 0.02 Index; Hepatitis C Virus Ab Result Non-Reactive (NonReactive)
[2022-06-13] MEDS: INSULIN REGULAR 100 UNIT/ML SUBCUT SCH ×4 (08:04→20:37)
[2022-06-13] MEDS ORDERED: AMIODARONE 200 MG TABLET PO SCH (09:00)
[2022-06-13] MEDS: POTASSIUM CHLORIDE 20 MEQ TABLET PO PRN ×4 (09:55→18:03)
[2022-06-13] MEDS: PANTOPRAZOLE 40 MG TABLET PO SCH (09:56)
[2022-06-13] MEDS: DOCUSATE SODIUM 100 MG CAPSULE PO SCH ×2 (09:57→20:36)
[2022-06-13] MEDS: METOPROLOL TARTRATE 25 MG TABLET PO SCH ×2 (09:57→20:36)
[2022-06-13] MEDS: levETIRAcetam 500 MG TABLET PO SCH ×2 (09:58→20:37)
[2022-06-13] MEDS: LEVOTHYROXINE 125 MCG TABLET PO SCH (10:00)
[2022-06-13] MEDS: TRESIBA SUBCUT SCH (12:08)
[2022-06-13] MEDS: ALBUMIN 25% 12.5 GM/50 ML VIAL IV SCH ×2 (12:59→20:34)
[2022-06-13] MEDS: FUROSEMIDE 20 MG/2 ML VIAL IV SCH (15:27)
[2022-06-13] MEDS: WARFARIN 2.5 MG TABLET PO SCH (18:03)
[2022-06-13 19:06] LABS: Hyaline Casts,Urine 29 /LPF (0-3); Mucus,Urine Occasional /LPF (Occasional); RBC,Urine 127 /HPF (0-4); Squamous Epithelial Cell,Urine Occasional /HPF (0-10)
[2022-06-13 19:09] LABS: Bilirubin,Urine Negative (Negative); Blood, Urine Large mg/dL (Negative); Glucose,Urine (UA) Negative (Negative); Ketones,Urine Negative (Negative); Nitrite,Urine Negative (Negative); Protein,Urine 30 mg/dL (Negative); Urine Appearance Clear (Clear); Urine Color Yellow (Yellow); Urine Specific Gravity 1.015 (1.001-1.035); Urine Urobilinogen 0.2 eU/dL (<2.0); Urine pH 5.5 (4.5-8.0)
[2022-06-13] MEDS: QUEtiapine 25 MG TABLET PO SCH (20:36)
[2022-06-13] MEDS: MAGNESIUM CHLORIDE 64 MG TABLET PO SCH (20:36)
[2022-06-13] MEDS: TAMSULOSIN 0.4 MG CAPSULE PO SCH (20:37)
[2022-06-14 00:57] LABS: Basophils % 0.1 % (0.0-0.8); Eosinophils % 0.1 % (0.00-10.9); Hemoglobin 9.7 GM/DL (14.0-18.0); Immature Granulocytes % 0.4 %; Immature Granulocytes Absolute 0.03 #; Lymphocytes # 0.4 10*3/uL (1.4-4.0); Lymphocytes % 5.1 % (21.2-54.2); Mean Corpuscular HGB Conc 32.3 GM/DL (32-36); Mean Corpuscular Volume 81.5 FL (87-102); Monocytes # 0.6 10*3/uL (0.11-0.8); Monocytes % 7.3 % (1.7-12.7); Platelet Count 197 T/CUMM (130-400); Red Blood Count 3.68 MC/CUMM (3.8-5.5); Red Cell Distribution Width 17.5 % (9.3-17.3); White Blood Count 7.7 T/CUMM (4-12)
[2022-06-14 01:13] LABS: INR 1.8; PT Patient Result 19.2 SECS (10.1-12.1)
[2022-06-14 01:16] LABS: Albumin 2.6 G/DL (3.4-5.0); Bilirubin,Total 0.9 MG/DL (0.20-1.00); Calcium 8.4 MG/DL (8.5-10.1); Osmolality,Calculated 285.8 MOS/KG (273-304); Potassium 4.1 MMOL/L (3.5-5.1); Total Protein 6.1 G/DL (6.4-8.2)
[2022-06-14] MEDS: ALBUMIN 25% 12.5 GM/50 ML VIAL IV SCH (04:17)
[2022-06-14] MEDS: INSULIN REGULAR 100 UNIT/ML SUBCUT SCH ×4 (10:27→21:15)
[2022-06-14] MEDS: levETIRAcetam 500 MG TABLET PO SCH ×2 (10:32→21:14)
[2022-06-14] MEDS: MAGNESIUM CHLORIDE 64 MG TABLET PO SCH ×2 (10:32→21:15)
[2022-06-14] MEDS: DOCUSATE SODIUM 100 MG CAPSULE PO SCH ×2 (10:32→21:15)
[2022-06-14] MEDS: METOPROLOL TARTRATE 25 MG TABLET PO SCH ×2 (10:32→21:15)
[2022-06-14] MEDS: PANTOPRAZOLE 40 MG TABLET PO SCH (10:32)
[2022-06-14] MEDS: FUROSEMIDE 20 MG/2 ML VIAL IV SCH (10:33)
[2022-06-14] MEDS: LEVOTHYROXINE 137 MCG TABLET PO SCH (10:36)
[2022-06-14] MEDS ORDERED: LACTULOSE 20 GM/30 ML UDCUP PO PRN (12:13)
[2022-06-14] MEDS: TRESIBA SUBCUT SCH (12:14)
[2022-06-14] MEDS: POLYETHYLENE GLYCOL POWDER 17 GM PACK PO SCH (12:19)
[2022-06-14] MEDS: WARFARIN 2.5 MG TABLET PO SCH (17:58)
[2022-06-14] MEDS: QUEtiapine 25 MG TABLET PO SCH (21:14)
[2022-06-14] MEDS: TAMSULOSIN 0.4 MG CAPSULE PO SCH (21:14)
[2022-06-15] MEDS: LEVOTHYROXINE 137 MCG TABLET PO SCH (06:00)
[2022-06-15 06:16] LABS: Basophils % 0.1 % (0.0-0.8); Eosinophils # 0.1 10*3/uL (0.0-0.87); Eosinophils % 1.3 % (0.00-10.9); Hematocrit 30.9 VOL% (42.0-52.0); Immature Granulocytes % 0.6 %; Immature Granulocytes Absolute 0.05 #; Lymphocytes # 1.1 10*3/uL (1.4-4.0); Mean Corpuscular HGB Conc 32.4 GM/DL (32-36); Mean Corpuscular Volume 82.4 FL (87-102); Mean Platelet Volume 11.9 FL (9.6-12.0); Monocytes # 0.9 10*3/uL (0.11-0.8); Monocytes % 10.4 % (1.7-12.7); NRBC # 0.03 10*3/uL; Neutrophils % 74.6 % (38.7-73.9); Platelet Count 198 T/CUMM (130-400); Red Blood Count 3.75 MC/CUMM (3.8-5.5); Red Cell Distribution Width 17.8 % (9.3-17.3); White Blood Count 8.7 T/CUMM (4-12)
[2022-06-15 06:25] LABS: INR 1.8; PT Patient Result 19.2 SECS (10.1-12.1)
[2022-06-15 06:39] LABS: Albumin 2.5 G/DL (3.4-5.0); Bilirubin,Total 0.8 MG/DL (0.20-1.00); Calcium 8.8 MG/DL (8.5-10.1); Osmolality,Calculated 289.7 MOS/KG (273-304); Potassium 3.6 MMOL/L (3.5-5.1); Total Protein 6.1 G/DL (6.4-8.2)
[2022-06-15] MEDS: INSULIN REGULAR 100 UNIT/ML SUBCUT SCH ×4 (07:55→21:54)
[2022-06-15] MEDS: METOPROLOL TARTRATE 25 MG TABLET PO SCH ×2 (09:08→21:53)
[2022-06-15] MEDS: MAGNESIUM CHLORIDE 64 MG TABLET PO SCH ×2 (09:08→21:53)
[2022-06-15] MEDS: POLYETHYLENE GLYCOL POWDER 17 GM PACK PO SCH (09:08)
[2022-06-15] MEDS: levETIRAcetam 500 MG TABLET PO SCH ×2 (09:09→21:53)
[2022-06-15] MEDS: FUROSEMIDE 20 MG/2 ML VIAL IV SCH (09:09)
[2022-06-15] MEDS: DOCUSATE SODIUM 100 MG CAPSULE PO SCH ×2 (09:09→21:54)
[2022-06-15] MEDS: PANTOPRAZOLE 40 MG TABLET PO SCH (09:09)
[2022-06-15] MEDS: TRESIBA SUBCUT SCH (12:11)
[2022-06-15] MEDS: ALBUMIN 25% 12.5 GM/50 ML VIAL IV SCH ×2 (14:39→21:53)
[2022-06-15] MEDS: WARFARIN 2.5 MG TABLET PO SCH (17:08)
[2022-06-15] MEDS: MENTHOL/ZINC OXIDE OINT 71 GM JAR TOP SCH (21:53)
[2022-06-15] MEDS: QUEtiapine 25 MG TABLET PO SCH (21:54)
[2022-06-15] MEDS: TAMSULOSIN 0.4 MG CAPSULE PO SCH (21:54)
[2022-06-16 05:18] LABS: Basophils % 0.1 % (0.0-0.8); Eosinophils # 0.2 10*3/uL (0.0-0.87); Eosinophils % 3.4 % (0.00-10.9); Hematocrit 29.3 VOL% (42.0-52.0); Hemoglobin 9.4 GM/DL (14.0-18.0); Immature Granulocytes % 0.3 %; Immature Granulocytes Absolute 0.02 #; Lymphocytes # 1.1 10*3/uL (1.4-4.0); Lymphocytes % 15.8 % (21.2-54.2); Mean Corpuscular HGB Conc 32.1 GM/DL (32-36); Mean Corpuscular Volume 82.1 FL (87-102); Mean Platelet Volume 11.3 FL (9.6-12.0); Monocytes # 0.7 10*3/uL (0.11-0.8); Monocytes % 9.8 % (1.7-12.7); NRBC # 0.02 10*3/uL; Neutrophils % 70.6 % (38.7-73.9); Platelet Count 195 T/CUMM (130-400); Red Blood Count 3.57 MC/CUMM (3.8-5.5); Red Cell Distribution Width 17.3 % (9.3-17.3)
[2022-06-16 05:40] LABS: Albumin 2.4 G/DL (3.4-5.0); Bilirubin,Total 0.8 MG/DL (0.20-1.00); Calcium 8.3 MG/DL (8.5-10.1); Osmolality,Calculated 293.1 MOS/KG (273-304); Potassium 3.3 MMOL/L (3.5-5.1); Total Protein 5.6 G/DL (6.4-8.2)
[2022-06-16] MEDS: ALBUMIN 25% 12.5 GM/50 ML VIAL IV SCH (05:45)
[2022-06-16] MEDS: LEVOTHYROXINE 137 MCG TABLET PO SCH (05:45)
[2022-06-16 06:23] LABS: PT Patient Result 21.5 SECS (10.1-12.1)
[2022-06-16] MEDS: POTASSIUM CHLORIDE 20 MEQ TABLET PO PRN ×3 (07:13→13:11)
[2022-06-16] MEDS: INSULIN REGULAR 100 UNIT/ML SUBCUT SCH ×4 (08:51→20:57)
[2022-06-16] MEDS: POLYETHYLENE GLYCOL POWDER 17 GM PACK PO SCH (08:57)
[2022-06-16] MEDS: DOCUSATE SODIUM 100 MG CAPSULE PO SCH ×2 (08:57→20:57)
[2022-06-16] MEDS: levETIRAcetam 250 MG TABLET PO SCH (08:58)
[2022-06-16] MEDS: PANTOPRAZOLE 40 MG TABLET PO SCH (08:58)
[2022-06-16] MEDS: MENTHOL/ZINC OXIDE OINT 71 GM JAR TOP SCH ×2 (08:58→20:57)
[2022-06-16] MEDS: MAGNESIUM CHLORIDE 64 MG TABLET PO SCH ×2 (08:58→20:57)
[2022-06-16] MEDS: METOPROLOL TARTRATE 25 MG TABLET PO SCH ×2 (09:04→20:59)
[2022-06-16] MEDS: FUROSEMIDE 20 MG/2 ML VIAL IV SCH (13:12)
[2022-06-16] MEDS: TRESIBA SUBCUT SCH (14:02)
[2022-06-16] MEDS: WARFARIN 2.5 MG TABLET PO SCH (18:07)
[2022-06-16] MEDS: QUEtiapine 25 MG TABLET PO SCH (20:57)
[2022-06-16] MEDS: TAMSULOSIN 0.4 MG CAPSULE PO SCH (20:57)
[2022-06-16] MEDS: levETIRAcetam 500 MG TABLET PO SCH (21:08)
[2022-06-17 05:33] LABS: Basophils % 0.2 % (0.0-0.8); Eosinophils # 0.1 10*3/uL (0.0-0.87); Eosinophils % 1.2 % (0.00-10.9); Hemoglobin 9.7 GM/DL (14.0-18.0); Immature Granulocytes % 0.5 %; Immature Granulocytes Absolute 0.05 #; Lymphocytes # 0.6 10*3/uL (1.4-4.0); Lymphocytes % 6.5 % (21.2-54.2); Mean Corpuscular HGB Conc 31.3 GM/DL (32-36); Mean Corpuscular Volume 82.7 FL (87-102); Monocytes % 11.1 % (1.7-12.7); NRBC # 0.03 10*3/uL; Neutrophils % 80.5 % (38.7-73.9); Platelet Count 193 T/CUMM (130-400); Red Blood Count 3.75 MC/CUMM (3.8-5.5); Red Cell Distribution Width 17.8 % (9.3-17.3); White Blood Count 9.3 T/CUMM (4-12)
[2022-06-17 05:40] LABS: INR 1.9; PT Patient Result 20.3 SECS (10.1-12.1)
[2022-06-17 05:54] LABS: Albumin 2.4 G/DL (3.4-5.0); Calcium 8.8 MG/DL (8.5-10.1); Osmolality,Calculated 292.3 MOS/KG (273-304); Potassium 3.5 MMOL/L (3.5-5.1); Total Protein 5.9 G/DL (6.4-8.2)
[2022-06-17] MEDS: LEVOTHYROXINE 137 MCG TABLET PO SCH (06:18)
[2022-06-17] MEDS: INSULIN REGULAR 100 UNIT/ML SUBCUT SCH ×4 (08:06→21:32)
[2022-06-17] MEDS: levETIRAcetam 250 MG TABLET PO SCH (10:29)
[2022-06-17] MEDS: DOCUSATE SODIUM 100 MG CAPSULE PO SCH ×2 (10:29→21:32)
[2022-06-17] MEDS: METOPROLOL TARTRATE 25 MG TABLET PO SCH ×2 (10:29→21:32)
[2022-06-17] MEDS: MAGNESIUM CHLORIDE 64 MG TABLET PO SCH ×2 (10:29→21:32)
[2022-06-17] MEDS: POTASSIUM CHLORIDE 20 MEQ TABLET PO PRN (10:29)
[2022-06-17] MEDS: POLYETHYLENE GLYCOL POWDER 17 GM PACK PO SCH (10:30)
[2022-06-17] MEDS: PANTOPRAZOLE 40 MG TABLET PO SCH (10:30)
[2022-06-17] MEDS: FUROSEMIDE 20 MG/2 ML VIAL IV SCH (10:30)
[2022-06-17] MEDS: MENTHOL/ZINC OXIDE OINT 71 GM JAR TOP SCH ×2 (10:31→21:33)
[2022-06-17] MEDS: TRESIBA SUBCUT SCH (14:54)
[2022-06-17] MEDS: WARFARIN 2.5 MG TABLET PO SCH (18:11)
[2022-06-17] MEDS: TAMSULOSIN 0.4 MG CAPSULE PO SCH (21:32)
[2022-06-17] MEDS: levETIRAcetam 500 MG TABLET PO SCH (21:32)
[2022-06-17] MEDS: QUEtiapine 25 MG TABLET PO SCH (21:32)
[2022-06-18 05:42] LABS: PT Patient Result 21.1 SECS (10.1-12.1)
[2022-06-18] MEDS: LEVOTHYROXINE 137 MCG TABLET PO SCH (06:54)
[2022-06-18] MEDS: INSULIN REGULAR 100 UNIT/ML SUBCUT SCH ×4 (10:24→21:33)
[2022-06-18] MEDS: PANTOPRAZOLE 40 MG TABLET PO SCH (10:32)
[2022-06-18] MEDS: levETIRAcetam 250 MG TABLET PO SCH (10:32)
[2022-06-18] MEDS: MAGNESIUM CHLORIDE 64 MG TABLET PO SCH ×2 (10:32→21:28)
[2022-06-18] MEDS: FUROSEMIDE 20 MG/2 ML VIAL IV SCH (10:32)
[2022-06-18] MEDS: METOPROLOL TARTRATE 25 MG TABLET PO SCH ×2 (10:32→21:28)
[2022-06-18] MEDS: DOCUSATE SODIUM 100 MG CAPSULE PO SCH ×2 (10:32→21:28)
[2022-06-18] MEDS: MENTHOL/ZINC OXIDE OINT 71 GM JAR TOP SCH ×2 (10:33→21:28)
[2022-06-18] MEDS: POLYETHYLENE GLYCOL POWDER 17 GM PACK PO SCH (10:44)
[2022-06-18] MEDS: TRESIBA SUBCUT SCH (12:24)
[2022-06-18] MEDS: WARFARIN 2.5 MG TABLET PO SCH (17:42)
[2022-06-18] MEDS: levETIRAcetam 500 MG TABLET PO SCH (21:28)
[2022-06-18] MEDS: QUEtiapine 25 MG TABLET PO SCH (21:28)
[2022-06-18] MEDS: TAMSULOSIN 0.4 MG CAPSULE PO SCH (21:28)
[2022-06-19 05:28] LABS: Basophils % 0.4 % (0.0-0.8); Eosinophils # 0.3 10*3/uL (0.0-0.87); Eosinophils % 3.7 % (0.00-10.9); Hematocrit 29.5 VOL% (42.0-52.0); Hemoglobin 9.2 GM/DL (14.0-18.0); Immature Granulocytes % 0.3 %; Immature Granulocytes Absolute 0.02 #; Lymphocytes % 13.5 % (21.2-54.2); Mean Corpuscular HGB Conc 31.2 GM/DL (32-36); Mean Corpuscular Volume 82.6 FL (87-102); Mean Platelet Volume 11.1 FL (9.6-12.0); Monocytes # 0.7 10*3/uL (0.11-0.8); Monocytes % 8.6 % (1.7-12.7); Neutrophils % 73.5 % (38.7-73.9); Platelet Count 190 T/CUMM (130-400); Red Blood Count 3.57 MC/CUMM (3.8-5.5); Red Cell Distribution Width 17.7 % (9.3-17.3); White Blood Count 7.5 T/CUMM (4-12)
[2022-06-19] MEDS: LEVOTHYROXINE 137 MCG TABLET PO SCH (05:48)
[2022-06-19] MEDS: INSULIN REGULAR 100 UNIT/ML SUBCUT SCH ×4 (07:33→21:16)
[2022-06-19 08:05] LABS: Calcium 8.2 MG/DL (8.5-10.1); Osmolality,Calculated 290.1 MOS/KG (273-304); Potassium 3.4 MMOL/L (3.5-5.1)
[2022-06-19] MEDS: MAGNESIUM CHLORIDE 64 MG TABLET PO SCH ×2 (09:24→21:15)
[2022-06-19] MEDS: PANTOPRAZOLE 40 MG TABLET PO SCH (09:25)
[2022-06-19] MEDS: levETIRAcetam 250 MG TABLET PO SCH (09:26)
[2022-06-19] MEDS: METOPROLOL TARTRATE 25 MG TABLET PO SCH ×2 (09:27→21:14)
[2022-06-19] MEDS: POTASSIUM CHLORIDE 20 MEQ TABLET PO PRN ×3 (09:27→14:09)
[2022-06-19] MEDS: DOCUSATE SODIUM 100 MG CAPSULE PO SCH ×2 (09:27→21:15)
[2022-06-19] MEDS: POLYETHYLENE GLYCOL POWDER 17 GM PACK PO SCH (09:37)
[2022-06-19] MEDS: FUROSEMIDE 20 MG/2 ML VIAL IV SCH (09:37)
[2022-06-19] MEDS: MENTHOL/ZINC OXIDE OINT 71 GM JAR TOP SCH ×2 (10:59→21:16)
[2022-06-19] MEDS: TRESIBA SUBCUT SCH (12:05)
[2022-06-19] MEDS: WARFARIN 2.5 MG TABLET PO SCH (18:18)
[2022-06-19] MEDS ORDERED: QUEtiapine 25 MG TABLET PO SCH (21:00)
[2022-06-19] MEDS: TAMSULOSIN 0.4 MG CAPSULE PO SCH (21:15)
[2022-06-19] MEDS: levETIRAcetam 500 MG TABLET PO SCH (21:15)
[2022-06-20 05:22] LABS: Albumin 2.4 G/DL (3.4-5.0); Bilirubin,Total 0.9 MG/DL (0.20-1.00); Calcium 8.1 MG/DL (8.5-10.1); Osmolality,Calculated 290.3 MOS/KG (273-304); Potassium 3.9 MMOL/L (3.5-5.1); Total Protein 5.9 G/DL (6.4-8.2)
[2022-06-20] MEDS: LEVOTHYROXINE 137 MCG TABLET PO SCH (05:50)
[2022-06-20] MEDS: MAGNESIUM CHLORIDE 64 MG TABLET PO SCH (08:50)
[2022-06-20] MEDS: PANTOPRAZOLE 40 MG TABLET PO SCH (08:50)
[2022-06-20] MEDS: FUROSEMIDE 20 MG/2 ML VIAL IV SCH (08:50)
[2022-06-20] MEDS: POLYETHYLENE GLYCOL POWDER 17 GM PACK PO SCH (08:50)
[2022-06-20] MEDS: METOPROLOL TARTRATE 25 MG TABLET PO SCH (08:50)
[2022-06-20] MEDS: DOCUSATE SODIUM 100 MG CAPSULE PO SCH (08:50)
[2022-06-20] MEDS: INSULIN REGULAR 100 UNIT/ML SUBCUT SCH ×2 (08:51→12:30)
[2022-06-20] MEDS: levETIRAcetam 250 MG TABLET PO SCH (08:58)
[2022-06-20] MEDS: MENTHOL/ZINC OXIDE OINT 71 GM JAR TOP SCH (09:04)
[2022-06-20 12:13] VITALS: BP 83/60
[2022-06-20] MEDS: TRESIBA SUBCUT SCH (12:55)
== END 2022-06-20 15:30 | disposition swing bed (61) | DRG 291 ==
LOC: N.TELEN 20:04 → INTOOBSV 20:04
PROVIDERS: ADMIT Internal Medicine; ATTEND Internal Medicine

== ENCOUNTER 2022-07-09 15:20 | Inpatient (IN) ==
[2022-07-09] MEDS ORDERED: cefTRIAXone 1,000 MG in SODIUM CHLORIDE 0.9% 100 ML IV STA (17:49)
[2022-07-09] MEDS ORDERED: SODIUM CHLORIDE 0.9% 500 ML IV STA (17:54)
[2022-07-09 19:13] LABS: Eosinophils % 0.1 % (0.00-10.9); Hematocrit 33.1 VOL% (42.0-52.0); Hemoglobin 10.5 GM/DL (14.0-18.0); Immature Granulocytes % 0.6 %; Immature Granulocytes Absolute 0.06 #; Lymphocytes # 0.9 10*3/uL (1.4-4.0); Lymphocytes % 8.3 % (21.2-54.2); Mean Corpuscular HGB Conc 31.7 GM/DL (32-36); Mean Corpuscular Volume 80.9 FL (87-102); Mean Platelet Volume 11.2 FL (9.6-12.0); Monocytes % 9.7 % (1.7-12.7); Neutrophils % 81.3 % (38.7-73.9); Platelet Count 366 T/CUMM (130-400); Red Blood Count 4.09 MC/CUMM (3.8-5.5); Red Cell Distribution Width 18.6 % (9.3-17.3); White Blood Count 10.7 T/CUMM (4-12)
[2022-07-09 19:17] LABS: Bilirubin,Total 1.5 MG/DL (0.20-1.00); Calcium 9.2 MG/DL (8.5-10.1); Osmolality,Calculated 287.5 MOS/KG (273-304); Potassium 4.8 MMOL/L (3.5-5.1); Total Protein 6.7 G/DL (6.4-8.2)
[2022-07-09] MEDS ORDERED: GLUCAGON 1 MG VIAL IM PRN (19:25)
[2022-07-09] MEDS ORDERED: MORPHINE 2 MG/1 ML SYRINGE IV PRN (19:25)
[2022-07-09] MEDS ORDERED: ONDANSETRON 4 MG/2 ML VIAL IV PRN (19:25)
[2022-07-09] MEDS ORDERED: DEXTROSE 10% 250 ML BAG IV PRN (19:39)
[2022-07-09] MEDS: PIPERACILLIN/TAZOBACTAM 3,375 MG in SODIUM CHLORIDE 0.9% 100 ML IV SCH (20:12)
[2022-07-09 20:20] LABS: Bacteria,Urine Many /HPF (Few); Bilirubin,Urine Negative (Negative); Blood, Urine Trace mg/dL (Negative); Glucose,Urine (UA) Negative (Negative); Hyaline Casts,Urine 19 /LPF (0-3); Ketones,Urine Negative (Negative); Mucus,Urine Occasional /LPF (Occasional); Nitrite,Urine Negative (Negative); Protein,Urine Trace mg/dL (Negative); RBC,Urine 4 /HPF (0-4); Squamous Epithelial Cell,Urine Occasional /HPF (0-10); Urine Appearance Clear (Clear); Urine Color Yellow (Yellow); Urine Urobilinogen 0.2 eU/dL (<2.0)
[2022-07-09] MEDS ORDERED: INFLUENZA VIRUS VACCINE 0.5 ML SYRINGE IM ONE (21:36)
[2022-07-09] MEDS: QUEtiapine 25 MG TABLET PO SCH (22:00)
[2022-07-09] MEDS: MENTHOL/ZINC OXIDE OINT 71 GM JAR TOP SCH (22:00)
[2022-07-09] MEDS: METOPROLOL TARTRATE 25 MG TABLET PO SCH (22:00)
[2022-07-09] MEDS: SODIUM CHLORIDE 0.9% 1,000 ML IV SCH (22:00)
[2022-07-09] MEDS: MAGNESIUM CHLORIDE 64 MG TABLET PO SCH (22:00)
[2022-07-09] MEDS: TAMSULOSIN 0.4 MG CAPSULE PO SCH (22:00)
[2022-07-09] MEDS: levETIRAcetam 500 MG TABLET PO SCH (22:00)
[2022-07-09] MEDS: DOCUSATE SODIUM 100 MG CAPSULE PO SCH (22:00)
[2022-07-09] MEDS: ALBUTEROL/IPRATROPIUM 3 ML NEB RESP TX SCH (23:39)
[2022-07-10] MEDS: ALBUTEROL/IPRATROPIUM 3 ML NEB RESP TX SCH ×7 (00:21→23:56)
[2022-07-10 01:16] LABS: Albumin 2.7 G/DL (3.4-5.0); Bilirubin,Total 1.2 MG/DL (0.20-1.00); Osmolality,Calculated 287.4 MOS/KG (273-304); Potassium 4.7 MMOL/L (3.5-5.1); Total Protein 6.3 G/DL (6.4-8.2)
[2022-07-10] MEDS: PIPERACILLIN/TAZOBACTAM 3,375 MG in SODIUM CHLORIDE 0.9% 100 ML IV SCH ×3 (04:00→21:23)
[2022-07-10] MEDS: INSULIN REGULAR 100 UNIT/ML SUBCUT SCH ×4 (06:10→18:54)
[2022-07-10] MEDS: LEVOTHYROXINE 137 MCG TABLET PO SCH (06:10)
[2022-07-10 09:34] LABS: INR 3.2; PT Patient Result 32.6 SECS (10.1-12.1)
[2022-07-10] MEDS: MAGNESIUM CHLORIDE 64 MG TABLET PO SCH ×2 (11:01→20:53)
[2022-07-10] MEDS: DOCUSATE SODIUM 100 MG CAPSULE PO SCH ×2 (11:01→20:54)
[2022-07-10] MEDS: METOPROLOL TARTRATE 25 MG TABLET PO SCH ×2 (11:02→20:53)
[2022-07-10] MEDS: INSULIN GLARGINE 100 UNIT/ML SUBCUT SCH (11:02)
[2022-07-10] MEDS: LORATADINE 10 MG TABLET PO SCH (11:02)
[2022-07-10] MEDS: levETIRAcetam 250 MG TABLET PO SCH (11:02)
[2022-07-10] MEDS: POLYETHYLENE GLYCOL POWDER 17 GM PACK PO SCH (11:02)
[2022-07-10] MEDS: PANTOPRAZOLE 40 MG TABLET PO SCH (11:02)
[2022-07-10] MEDS: SODIUM CHLORIDE 0.9% 1,000 ML IV SCH (11:03)
[2022-07-10] MEDS: MENTHOL/ZINC OXIDE OINT 71 GM JAR TOP SCH ×2 (11:04→20:56)
[2022-07-10] MEDS ORDERED: WARFARIN 2.5 MG TABLET PO SCH (18:00)
[2022-07-10] MEDS: ACETAMINOPHEN 325 MG TABLET PO PRN (20:53)
[2022-07-10] MEDS: TAMSULOSIN 0.4 MG CAPSULE PO SCH (20:53)
[2022-07-10] MEDS: QUEtiapine 25 MG TABLET PO SCH (20:54)
[2022-07-10] MEDS: levETIRAcetam 500 MG TABLET PO SCH (21:23)
[2022-07-11] MEDS: INSULIN REGULAR 100 UNIT/ML SUBCUT SCH ×4 (01:24→17:15)
[2022-07-11] MEDS: SODIUM CHLORIDE 0.9% 1,000 ML IV SCH ×2 (01:56→18:57)
[2022-07-11] MEDS: ALBUTEROL/IPRATROPIUM 3 ML NEB RESP TX SCH ×6 (02:26→23:58)
[2022-07-11] MEDS: PIPERACILLIN/TAZOBACTAM 3,375 MG in SODIUM CHLORIDE 0.9% 100 ML IV SCH ×3 (03:10→20:57)
[2022-07-11 05:14] LABS: Basophils % 0.1 % (0.0-0.8); Eosinophils % 0.2 % (0.00-10.9); Hematocrit 28.3 VOL% (42.0-52.0); Hemoglobin 9.1 GM/DL (14.0-18.0); Immature Granulocytes % 0.3 %; Immature Granulocytes Absolute 0.03 #; Lymphocytes # 0.8 10*3/uL (1.4-4.0); Lymphocytes % 7.8 % (21.2-54.2); Mean Corpuscular HGB Conc 32.2 GM/DL (32-36); Mean Corpuscular Volume 79.1 FL (87-102); Mean Platelet Volume 11.1 FL (9.6-12.0); Monocytes % 9.8 % (1.7-12.7); NRBC # 0.18 10*3/uL; Neutrophils % 81.8 % (38.7-73.9); Platelet Count 305 T/CUMM (130-400); Red Blood Count 3.58 MC/CUMM (3.8-5.5); Red Cell Distribution Width 18.2 % (9.3-17.3); White Blood Count 10.1 T/CUMM (4-12)
[2022-07-11 05:33] LABS: Albumin 2.6 G/DL (3.4-5.0); Bilirubin,Total 1.3 MG/DL (0.20-1.00); Calcium 9.1 MG/DL (8.5-10.1); Osmolality,Calculated 280.8 MOS/KG (273-304); Potassium 4.6 MMOL/L (3.5-5.1); Total Protein 6.1 G/DL (6.4-8.2)
[2022-07-11 05:41] LABS: INR 3.2
[2022-07-11] MEDS: LEVOTHYROXINE 137 MCG TABLET PO SCH (05:45)
[2022-07-11] MEDS: MAGNESIUM CHLORIDE 64 MG TABLET PO SCH ×2 (08:27→20:59)
[2022-07-11] MEDS: levETIRAcetam 250 MG TABLET PO SCH (08:27)
[2022-07-11] MEDS: PANTOPRAZOLE 40 MG TABLET PO SCH (08:28)
[2022-07-11] MEDS: POLYETHYLENE GLYCOL POWDER 17 GM PACK PO SCH (08:28)
[2022-07-11] MEDS: MENTHOL/ZINC OXIDE OINT 71 GM JAR TOP SCH ×2 (08:28→21:00)
[2022-07-11] MEDS: LORATADINE 10 MG TABLET PO SCH (08:28)
[2022-07-11] MEDS: METOPROLOL TARTRATE 25 MG TABLET PO SCH ×2 (08:28→20:59)
[2022-07-11] MEDS: DOCUSATE SODIUM 100 MG CAPSULE PO SCH ×2 (08:28→20:58)
[2022-07-11] MEDS: INSULIN GLARGINE 100 UNIT/ML SUBCUT SCH (08:56)
[2022-07-11] MEDS: QUEtiapine 25 MG TABLET PO SCH (20:58)
[2022-07-11] MEDS: levETIRAcetam 500 MG TABLET PO SCH (20:59)
[2022-07-11] MEDS: TAMSULOSIN 0.4 MG CAPSULE PO SCH (20:59)
[2022-07-11] MEDS: ACETAMINOPHEN 325 MG TABLET PO PRN (21:02)
[2022-07-12] MEDS: ALBUTEROL/IPRATROPIUM 3 ML NEB RESP TX SCH ×5 (00:11→19:26)
[2022-07-12] MEDS: INSULIN REGULAR 100 UNIT/ML SUBCUT SCH ×4 (00:41→18:31)
[2022-07-12] MEDS: PIPERACILLIN/TAZOBACTAM 3,375 MG in SODIUM CHLORIDE 0.9% 100 ML IV SCH ×3 (04:12→20:48)
[2022-07-12 05:51] LABS: Basophils % 0.2 % (0.0-0.8); Eosinophils % 0.4 % (0.00-10.9); Hematocrit 27.8 VOL% (42.0-52.0); Hemoglobin 9.1 GM/DL (14.0-18.0); Immature Granulocytes % 0.4 %; Immature Granulocytes Absolute 0.04 #; Lymphocytes # 0.5 10*3/uL (1.4-4.0); Lymphocytes % 4.2 % (21.2-54.2); Mean Corpuscular HGB Conc 32.7 GM/DL (32-36); Mean Corpuscular Volume 78.3 FL (87-102); Mean Platelet Volume 11.2 FL (9.6-12.0); Monocytes # 0.9 10*3/uL (0.11-0.8); Monocytes % 8.3 % (1.7-12.7); Neutrophils % 86.5 % (38.7-73.9); Platelet Count 278 T/CUMM (130-400); Red Blood Count 3.55 MC/CUMM (3.8-5.5); White Blood Count 10.6 T/CUMM (4-12)
[2022-07-12] MEDS: LEVOTHYROXINE 137 MCG TABLET PO SCH (05:59)
[2022-07-12 06:00] LABS: INR 2.9; PT Patient Result 29.8 SECS (10.1-12.1)
[2022-07-12 06:14] LABS: Albumin 2.5 G/DL (3.4-5.0); Bilirubin,Total 1.9 MG/DL (0.20-1.00); Calcium 8.8 MG/DL (8.5-10.1); Osmolality,Calculated 291.2 MOS/KG (273-304); Potassium 4.1 MMOL/L (3.5-5.1); Total Protein 5.8 G/DL (6.4-8.2)
[2022-07-12 06:15] LABS: Hypochromia Slight; Lymphocytes 2 % (20-55); Microcytosis Slight; Platelet Estimate Adequate; Total Cells Counted 100
[2022-07-12] MEDS: PANTOPRAZOLE 40 MG TABLET PO SCH (09:01)
[2022-07-12] MEDS: DOCUSATE SODIUM 100 MG CAPSULE PO SCH ×2 (09:01→20:48)
[2022-07-12] MEDS: MAGNESIUM CHLORIDE 64 MG TABLET PO SCH ×2 (09:01→20:48)
[2022-07-12] MEDS: MENTHOL/ZINC OXIDE OINT 71 GM JAR TOP SCH ×2 (09:01→20:48)
[2022-07-12] MEDS: METOPROLOL TARTRATE 25 MG TABLET PO SCH ×2 (09:01→20:49)
[2022-07-12] MEDS: levETIRAcetam 250 MG TABLET PO SCH (09:01)
[2022-07-12] MEDS: LORATADINE 10 MG TABLET PO SCH (09:01)
[2022-07-12] MEDS: INSULIN GLARGINE 100 UNIT/ML SUBCUT SCH (09:01)
[2022-07-12] MEDS: SODIUM CHLORIDE 0.9% 1,000 ML IV SCH (09:02)
[2022-07-12] MEDS: POLYETHYLENE GLYCOL POWDER 17 GM PACK PO SCH (09:02)
[2022-07-12] MEDS: levETIRAcetam 500 MG TABLET PO SCH (20:48)
[2022-07-12] MEDS: ACETAMINOPHEN 325 MG TABLET PO PRN (20:49)
[2022-07-12] MEDS: TAMSULOSIN 0.4 MG CAPSULE PO SCH (20:49)
[2022-07-12] MEDS: QUEtiapine 25 MG TABLET PO SCH (20:49)
[2022-07-13] MEDS: ALBUTEROL/IPRATROPIUM 3 ML NEB RESP TX SCH ×7 (00:58→23:01)
[2022-07-13] MEDS: INSULIN REGULAR 100 UNIT/ML SUBCUT SCH ×2 (01:05→21:51)
[2022-07-13] MEDS: SODIUM CHLORIDE 0.9% 1,000 ML IV SCH ×2 (01:30→17:02)
[2022-07-13] MEDS: PIPERACILLIN/TAZOBACTAM 3,375 MG in SODIUM CHLORIDE 0.9% 100 ML IV SCH ×3 (04:27→21:49)
[2022-07-13 05:10] LABS: Basophils % 0.1 % (0.0-0.8); Eosinophils % 0.2 % (0.00-10.9); Hematocrit 29.1 VOL% (42.0-52.0); Hemoglobin 9.4 GM/DL (14.0-18.0); Immature Granulocytes % 0.5 %; Immature Granulocytes Absolute 0.06 #; Lymphocytes # 0.3 10*3/uL (1.4-4.0); Lymphocytes % 2.4 % (21.2-54.2); Mean Corpuscular HGB Conc 32.3 GM/DL (32-36); Mean Corpuscular Volume 79.1 FL (87-102); Monocytes # 0.8 10*3/uL (0.11-0.8); Monocytes % 6.8 % (1.7-12.7); NRBC # 0.29 10*3/uL; Platelet Count 268 T/CUMM (130-400); Red Blood Count 3.68 MC/CUMM (3.8-5.5); Red Cell Distribution Width 18.5 % (9.3-17.3); White Blood Count 11.1 T/CUMM (4-12)
[2022-07-13 05:22] LABS: INR 3.4; PT Patient Result 34.2 SECS (10.1-12.1)
[2022-07-13 05:36] LABS: Albumin 2.5 G/DL (3.4-5.0); Bilirubin,Total 1.4 MG/DL (0.20-1.00); Calcium 8.6 MG/DL (8.5-10.1); Osmolality,Calculated 284.5 MOS/KG (273-304); Potassium 4.4 MMOL/L (3.5-5.1)
[2022-07-13 05:37] LABS: Eosinophils 1 % (0-10); Hypochromia Slight; Lymphocytes 5 % (20-55); Microcytosis Slight; Nucleated Red Blood Cells 2 /100 WBC (0-5); Platelet Estimate Adequate; Total Cells Counted 100
[2022-07-13] MEDS: LEVOTHYROXINE 137 MCG TABLET PO SCH (06:12)
[2022-07-13] MEDS ORDERED: MORPHINE 2 MG/1 ML SYRINGE IV PRN (08:53)
[2022-07-13] MEDS: PANTOPRAZOLE 40 MG TABLET PO SCH (09:24)
[2022-07-13] MEDS: levETIRAcetam 250 MG TABLET PO SCH (09:24)
[2022-07-13] MEDS: LORATADINE 10 MG TABLET PO SCH (09:24)
[2022-07-13] MEDS: MAGNESIUM CHLORIDE 64 MG TABLET PO SCH ×2 (09:24→21:50)
[2022-07-13] MEDS: METOPROLOL TARTRATE 25 MG TABLET PO SCH ×2 (09:24→21:50)
[2022-07-13] MEDS: DOCUSATE SODIUM 100 MG CAPSULE PO SCH ×2 (09:24→21:50)
[2022-07-13] MEDS: POLYETHYLENE GLYCOL POWDER 17 GM PACK PO SCH (09:24)
[2022-07-13] MEDS: MENTHOL/ZINC OXIDE OINT 71 GM JAR TOP SCH ×2 (09:25→21:49)
[2022-07-13] MEDS: levETIRAcetam 500 MG TABLET PO SCH (21:50)
[2022-07-13] MEDS: QUEtiapine 25 MG TABLET PO SCH (21:50)
[2022-07-13] MEDS: TAMSULOSIN 0.4 MG CAPSULE PO SCH (21:50)
[2022-07-14] MEDS: ALBUTEROL/IPRATROPIUM 3 ML NEB RESP TX SCH ×6 (03:16→23:50)
[2022-07-14 05:35] LABS: INR 3.2; PT Patient Result 32.4 SECS (10.1-12.1)
[2022-07-14] MEDS: LEVOTHYROXINE 137 MCG TABLET PO SCH (06:15)
[2022-07-14] MEDS: PIPERACILLIN/TAZOBACTAM 3,375 MG in SODIUM CHLORIDE 0.9% 100 ML IV SCH ×3 (06:15→20:28)
[2022-07-14] MEDS: METOPROLOL TARTRATE 25 MG TABLET PO SCH ×2 (10:43→20:24)
[2022-07-14] MEDS: INSULIN REGULAR 100 UNIT/ML SUBCUT SCH ×4 (10:43→20:00)
[2022-07-14] MEDS: MAGNESIUM CHLORIDE 64 MG TABLET PO SCH ×2 (10:43→20:29)
[2022-07-14] MEDS: PANTOPRAZOLE 40 MG TABLET PO SCH (10:43)
[2022-07-14] MEDS: LORATADINE 10 MG TABLET PO SCH (10:43)
[2022-07-14] MEDS: SODIUM CHLORIDE 0.9% 1,000 ML IV SCH ×2 (10:44→22:52)
[2022-07-14] MEDS: DOCUSATE SODIUM 100 MG CAPSULE PO SCH ×2 (10:44→20:28)
[2022-07-14] MEDS: levETIRAcetam 250 MG TABLET PO SCH (10:44)
[2022-07-14] MEDS: MENTHOL/ZINC OXIDE OINT 71 GM JAR TOP SCH ×2 (10:44→20:28)
[2022-07-14] MEDS: POLYETHYLENE GLYCOL POWDER 17 GM PACK PO SCH (10:46)
[2022-07-14] MEDS: ACETAMINOPHEN 325 MG TABLET PO PRN (17:04)
[2022-07-14] MEDS: LACTULOSE 20 GM/30 ML UDCUP PO PRN (17:04)
[2022-07-14] MEDS: TAMSULOSIN 0.4 MG CAPSULE PO SCH (20:28)
[2022-07-14] MEDS: levETIRAcetam 500 MG TABLET PO SCH (20:28)
[2022-07-14] MEDS: QUEtiapine 25 MG TABLET PO SCH (20:29)
[2022-07-15] MEDS: ALBUTEROL/IPRATROPIUM 3 ML NEB RESP TX SCH ×6 (03:10→23:40)
[2022-07-15] MEDS: PIPERACILLIN/TAZOBACTAM 3,375 MG in SODIUM CHLORIDE 0.9% 100 ML IV SCH ×2 (04:03→12:48)
[2022-07-15 04:45] LABS: Eosinophils % 0.3 % (0.00-10.9); Hematocrit 28.4 VOL% (42.0-52.0); Hemoglobin 9.1 GM/DL (14.0-18.0); Immature Granulocytes % 0.6 %; Immature Granulocytes Absolute 0.07 #; Lymphocytes # 0.7 10*3/uL (1.4-4.0); Lymphocytes % 5.6 % (21.2-54.2); Mean Corpuscular Volume 78.2 FL (87-102); Mean Platelet Volume 10.7 FL (9.6-12.0); Monocytes # 0.9 10*3/uL (0.11-0.8); Monocytes % 7.9 % (1.7-12.7); NRBC # 0.19 10*3/uL; Neutrophils % 85.6 % (38.7-73.9); Platelet Count 221 T/CUMM (130-400); Red Blood Count 3.63 MC/CUMM (3.8-5.5); Red Cell Distribution Width 18.5 % (9.3-17.3); White Blood Count 11.6 T/CUMM (4-12)
[2022-07-15 04:51] LABS: INR 2.7; PT Patient Result 27.8 SECS (10.1-12.1)
[2022-07-15 05:04] LABS: Albumin 2.3 G/DL (3.4-5.0); Bilirubin,Total 1.5 MG/DL (0.20-1.00); Calcium 8.9 MG/DL (8.5-10.1); Osmolality,Calculated 292.5 MOS/KG (273-304); Potassium 4.8 MMOL/L (3.5-5.1); Total Protein 5.8 G/DL (6.4-8.2)
[2022-07-15] MEDS: LEVOTHYROXINE 137 MCG TABLET PO SCH (05:43)
[2022-07-15] MEDS: INSULIN REGULAR 100 UNIT/ML SUBCUT SCH ×4 (08:42→21:00)
[2022-07-15] MEDS: MAGNESIUM CHLORIDE 64 MG TABLET PO SCH ×2 (08:43→21:00)
[2022-07-15] MEDS: PANTOPRAZOLE 40 MG TABLET PO SCH (08:43)
[2022-07-15] MEDS: POLYETHYLENE GLYCOL POWDER 17 GM PACK PO SCH (08:43)
[2022-07-15] MEDS: DOCUSATE SODIUM 100 MG CAPSULE PO SCH (08:43)
[2022-07-15] MEDS: MENTHOL/ZINC OXIDE OINT 71 GM JAR TOP SCH ×2 (08:43→21:00)
[2022-07-15] MEDS: LORATADINE 10 MG TABLET PO SCH (08:44)
[2022-07-15] MEDS: METOPROLOL TARTRATE 25 MG TABLET PO SCH ×2 (08:44→21:00)
[2022-07-15] MEDS: SODIUM CHLORIDE 0.9% 1,000 ML IV SCH ×2 (08:45→16:07)
[2022-07-15] MEDS: levETIRAcetam 250 MG TABLET PO SCH (08:51)
[2022-07-15] MEDS: LACTULOSE 20 GM/30 ML UDCUP PO PRN (08:52)
[2022-07-15] MEDS: ACETAMINOPHEN 325 MG TABLET PO PRN (14:45)
[2022-07-15] MEDS: TAMSULOSIN 0.4 MG CAPSULE PO SCH (21:00)
[2022-07-15] MEDS: QUEtiapine 25 MG TABLET PO SCH (21:00)
[2022-07-15] MEDS: levETIRAcetam 500 MG TABLET PO SCH (21:00)
[2022-07-16] MEDS: PIPERACILLIN/TAZOBACTAM 3,375 MG in SODIUM CHLORIDE 0.9% 100 ML IV SCH ×4 (00:03→20:59)
[2022-07-16] MEDS: DOCUSATE SODIUM 100 MG CAPSULE PO SCH ×3 (00:08→20:58)
[2022-07-16] MEDS: ALBUTEROL/IPRATROPIUM 3 ML NEB RESP TX SCH ×6 (03:40→23:53)
[2022-07-16 05:00] LABS: Basophils % 0.1 % (0.0-0.8); Eosinophils % 0.1 % (0.00-10.9); Hematocrit 32.5 VOL% (42.0-52.0); Hemoglobin 9.6 GM/DL (14.0-18.0); Immature Granulocytes % 0.5 %; Immature Granulocytes Absolute 0.06 #; Lymphocytes # 0.3 10*3/uL (1.4-4.0); Lymphocytes % 2.9 % (21.2-54.2); Mean Corpuscular HGB Conc 29.5 GM/DL (32-36); Mean Corpuscular Volume 84.4 FL (87-102); Mean Platelet Volume 10.8 FL (9.6-12.0); Monocytes # 0.9 10*3/uL (0.11-0.8); Monocytes % 7.8 % (1.7-12.7); NRBC # 0.23 10*3/uL; Neutrophils % 88.6 % (38.7-73.9); Platelet Count 168 T/CUMM (130-400); Red Blood Count 3.85 MC/CUMM (3.8-5.5); Red Cell Distribution Width 19.6 % (9.3-17.3); White Blood Count 11.3 T/CUMM (4-12)
[2022-07-16 05:17] LABS: Albumin 2.4 G/DL (3.4-5.0); Bilirubin,Total 1.3 MG/DL (0.20-1.00); Calcium 8.8 MG/DL (8.5-10.1); Osmolality,Calculated 299.4 MOS/KG (273-304); Potassium 4.6 MMOL/L (3.5-5.1); Total Protein 5.9 G/DL (6.4-8.2)
[2022-07-16 05:24] LABS: Lymphocytes 8 % (20-55); Nucleated Red Blood Cells 6 /100 WBC (0-5); Platelet Estimate Adequate; Target Cells Slight; Total Cells Counted 100
[2022-07-16 05:51] LABS: Uric Acid 9.7 MG/DL (3.5-7.2)
[2022-07-16] MEDS: MAGNESIUM CHLORIDE 64 MG TABLET PO SCH ×2 (09:23→20:58)
[2022-07-16] MEDS: levETIRAcetam 250 MG TABLET PO SCH (09:23)
[2022-07-16] MEDS: LORATADINE 10 MG TABLET PO SCH (09:24)
[2022-07-16] MEDS: PANTOPRAZOLE 40 MG TABLET PO SCH (09:24)
[2022-07-16] MEDS: METOPROLOL TARTRATE 25 MG TABLET PO SCH ×2 (09:24→21:00)
[2022-07-16] MEDS: SODIUM CHLORIDE 0.9% 1,000 ML IV SCH ×2 (09:25→22:03)
[2022-07-16] MEDS: MENTHOL/ZINC OXIDE OINT 71 GM JAR TOP SCH ×2 (09:25→20:58)
[2022-07-16] MEDS: INSULIN REGULAR 100 UNIT/ML SUBCUT SCH ×4 (09:26→20:08)
[2022-07-16] MEDS: LEVOTHYROXINE 137 MCG TABLET PO SCH (09:34)
[2022-07-16] MEDS: POLYETHYLENE GLYCOL POWDER 17 GM PACK PO SCH (11:47)
[2022-07-16] MEDS: TAMSULOSIN 0.4 MG CAPSULE PO SCH (20:59)
[2022-07-16] MEDS: levETIRAcetam 500 MG TABLET PO SCH (20:59)
[2022-07-16] MEDS: QUEtiapine 25 MG TABLET PO SCH (21:00)
[2022-07-17] MEDS: ALBUTEROL/IPRATROPIUM 3 ML NEB RESP TX SCH ×5 (02:54→20:44)
[2022-07-17] MEDS: PIPERACILLIN/TAZOBACTAM 3,375 MG in SODIUM CHLORIDE 0.9% 100 ML IV SCH (03:58)
[2022-07-17 05:29] LABS: INR 3.8; PT Patient Result 38.2 SECS (10.1-12.1)
[2022-07-17 05:43] LABS: Basophils % 0.1 % (0.0-0.8); Eosinophils % 0.2 % (0.00-10.9); Hematocrit 32.3 VOL% (42.0-52.0); Hemoglobin 10.1 GM/DL (14.0-18.0); Immature Granulocytes % 0.4 %; Immature Granulocytes Absolute 0.05 #; Lymphocytes # 0.5 10*3/uL (1.4-4.0); Lymphocytes % 3.8 % (21.2-54.2); Mean Corpuscular HGB Conc 31.3 GM/DL (32-36); Mean Corpuscular Volume 80.1 FL (87-102); Mean Platelet Volume 11.8 FL (9.6-12.0); Monocytes # 0.7 10*3/uL (0.11-0.8); Monocytes % 6.2 % (1.7-12.7); NRBC # 0.32 10*3/uL; Neutrophils % 89.3 % (38.7-73.9); Platelet Count 159 T/CUMM (130-400); Red Blood Count 4.03 MC/CUMM (3.8-5.5); Red Cell Distribution Width 19.1 % (9.3-17.3)
[2022-07-17 05:56] LABS: Albumin 2.1 G/DL (3.4-5.0); Calcium 8.7 MG/DL (8.5-10.1); Osmolality,Calculated 292.7 MOS/KG (273-304); Potassium 4.9 MMOL/L (3.5-5.1)
[2022-07-17 05:57] LABS: Hypochromia 1+; Lymphocytes 7 % (20-55); Nucleated Red Blood Cells 3 /100 WBC (0-5); Total Cells Counted 100
[2022-07-17 05:58] LABS: Acanthocytes Few; Anisocytosis 1+; Microcytosis 1+; Ovalocytes Slight; Target Cells Few
[2022-07-17 05:59] LABS: Platelet Estimate Adequate
[2022-07-17] MEDS: LEVOTHYROXINE 137 MCG TABLET PO SCH (06:08)
[2022-07-17] MEDS: INSULIN REGULAR 100 UNIT/ML SUBCUT SCH (09:09)
[2022-07-17] MEDS ORDERED: MORPHINE 2 MG/1 ML SYRINGE IV PRN ×2 (09:45)
[2022-07-17] MEDS: levETIRAcetam 250 MG TABLET PO SCH (09:47)
[2022-07-17] MEDS: MENTHOL/ZINC OXIDE OINT 71 GM JAR TOP SCH ×2 (09:47→21:46)
[2022-07-17] MEDS ORDERED: LORazepam 2 MG/1 ML VIAL IV PRN (09:48)
[2022-07-17] MEDS: DOCUSATE SODIUM 100 MG CAPSULE PO SCH (10:12)
[2022-07-17] MEDS: LORATADINE 10 MG TABLET PO SCH (10:12)
[2022-07-17] MEDS: METOPROLOL TARTRATE 25 MG TABLET PO SCH (10:12)
[2022-07-17] MEDS: POLYETHYLENE GLYCOL POWDER 17 GM PACK PO SCH (10:17)
[2022-07-17] MEDS: PANTOPRAZOLE 40 MG TABLET PO SCH (10:18)
[2022-07-17] MEDS: MAGNESIUM CHLORIDE 64 MG TABLET PO SCH (10:18)
[2022-07-17] MEDS: levETIRAcetam 500 MG TABLET PO SCH (20:42)
[2022-07-18] MEDS: ALBUTEROL/IPRATROPIUM 3 ML NEB RESP TX SCH ×4 (00:08→11:30)
[2022-07-18 04:49] LABS: PT Patient Result 21.3 SECS (10.1-12.1)
[2022-07-18 09:00] VITALS: BP 81/59
[2022-07-18] MEDS: levETIRAcetam 250 MG TABLET PO SCH (09:47)
[2022-07-18] MEDS: MENTHOL/ZINC OXIDE OINT 71 GM JAR TOP SCH (09:48)
== END 2022-07-18 12:15 | disposition hospice, home (50) | DRG 193 ==
LOC: EDUNIT# → EDBD → N.ED 15:20 → N.EDINP 18:48 → N.TELEN 19:53
PROVIDERS: ADMIT Internal Medicine; ATTEND Internal Medicine